=== PATIENT | male | born 1960 | race Caucasian/White ===

== ENCOUNTER 2017-02-16 13:54 | Inpatient (IN) | payer OTHER ==
[2017-02-16] MEDS ORDERED: PROVENTIL IH ONE ×3 (14:47→15:14)
[2017-02-16] MEDS ORDERED: ATROVENT IH ONE ×3 (14:47→15:14)
[2017-02-16] MEDS ORDERED: MAGNESIUM SULFATE 2GM/50ML 2 GM/50 ML BAG IV ONE ×2 (14:53→15:00)
--- NOTE | 2017-02-16 15:28 | XRay Report ---
FINAL REPORT PROCEDURE: XR CHEST ROUTINE 2V TECHNIQUE: PA and lateral chest radiographs were obtained. CPT 95225 HISTORY: Shortness of breath COMPARISON: No prior studies are available for comparison. FINDINGS: Heart: Normal. Mediastinum/Vessels: Normal. Lungs/Pleural space: Lungs are hyperinflated consistent with underlying COPD, otherwise appear clear.. Bony thorax: No acute osseous abnormality. Other: IMPRESSION: COPD. No acute abnormality is identified..
[2017-02-16 15:32] LABS: Basophils % (Auto) 0.4 % (0.0-1.8); Eosinophils % (Auto) 3.6 % (0.0-4.3); Hematocrit 52.9 % (35.5-45.6); Mean Corpuscular HGB Conc 34 % (32-34); Mean Corpuscular Hemoglobin 28 pg (28-32); Mean Corpuscular Volume 82 fl (84-94); Platelet Count 337 K/mm3 (140-440); Red Blood Count 6.47 M/mm3 (3.65-5.03); Red Cell Distribution Width 13.1 % (13.2-15.2); White Blood Count 16.9 K/mm3 (4.5-11.0)
[2017-02-16 15:47] LABS: Anion Gap 24 mmol/L; BUN/Creatinine Ratio 16.66; Blood Urea Nitrogen 15 mg/dL (9-20); Calcium 9.4 mg/dL (8.4-10.2); Carbon Dioxide 21 mmol/L (22-30); Chloride 94.2 mmol/L (98-107); Glucose 307 mg/dL (75-100); Potassium 4.1 mmol/L (3.6-5.0); Sodium 135 mmol/L (137-145)
[2017-02-16] MEDS ORDERED: NACL 0.9% 1000 ML 1,000 ML IV ONE (15:56)
[2017-02-16] MEDS ORDERED: NACL 0.9% 1000 ML 500 ML IV ONE (15:56)
--- NOTE | 2017-02-16 15:56 | Emergency Department Report ---
ED General Adult HPI - General Chief complaint: Dyspnea/Respdistress Stated complaint: TROUBLE BREATHING Time Seen by Provider: 02/16/17 14:32 Source: patient Mode of arrival: Ambulatory Limitations: No Limitations - History of Present Illness Initial comments: Patient states that his asthma has been exacerbated for the last few days. He was unable to sleep last night due to difficulty in breathing. He sees multiple home nebs prior to arriving. He started himself back on prednisone 10 mg a day over the past few days. He's had some cough but no productive sputum. He does not complain of chest pain fever or chills. The patient has no prior intubations but previous admissions for asthma he states. -: Gradual, days(s) Consistency: constant Improves with: none Worsens with: none Associated Symptoms: shortness of breath - Related Data Home Medications Medication Instructions Recorded Confirmed Last Taken ALBUTEROL Inhaler [ProAir HFA 1 puff INHALATION BID 11/01/13 06/19/16 1 Day Ago Inhaler] ALBUTEROL NEB's [Proventil 0.083% 2.5 mg INHALATION QID PRN 11/01/13 06/19/16 1 Day Ago NEBS] Previous Rx's Medication Instructions Recorded Last Taken Type predniSONE [Deltasone] 2 tab PO BID #8 tab 11/01/13 Unknown Rx ALBUTEROL NEB's [Proventil 0.083% 2.5 mg IH Q4H PRN #25 neb 08/16/14 1 Day Ago Rx NEBS] Ipratropium [Atrovent NEB] 0.5 mg IH Q6H PRN #25 neb 08/16/14 1 Day Ago Rx predniSONE [Deltasone] 20 mg PO TID #15 tab 08/16/14 Unknown Rx Prednisone [Prednisone 10 mg 10 mg PO .TAPER #1 tab.ds.pk 02/06/15 1 Day Ago Rx (6-Day Pack, 21 Tabs)] Acyclovir [Zovirax Tab] 400 mg PO 5XD 7 Days 06/19/16 Unknown Rx Carboxymethylcellulose Sodium 1 - 2 drop OD TID PRN #1 bottle 06/19/16 Unknown Rx [Lubricant Eye Drops 1%] metFORMIN [Glucophage] 500 mg PO BID #30 tablet 06/19/16 Unknown Rx predniSONE [Deltasone] 40 mg PO BID 7 Days 06/19/16 Unknown Rx Allergies Allergy/AdvReac Type Severity Reaction Status Date / Time No Known Allergies Allergy Verified 08/16/14 04:13 ED Review of Systems ROS: Stated complaint: TROUBLE BREATHING Other details as noted in HPI Constitutional: denies: chills, fever Eyes: denies: eye pain, eye discharge, vision change ENT: denies: ear pain, throat pain Respiratory: cough, shortness of breath, wheezing Cardiovascular: denies: chest pain, palpitations Endocrine: no symptoms reported Gastrointestinal: denies: abdominal pain, nausea, diarrhea Genitourinary: denies: urgency, dysuria Musculoskeletal: denies: back pain, joint swelling, arthralgia Skin: denies: rash, lesions Neurological: denies: headache, weakness, paresthesias Psychiatric: denies: anxiety, depression Hematological/Lymphatic: denies: easy bleeding, easy bruising ED Past Medical Hx - Past Medical History Hx Hypertension: No Hx CVA: No Hx Heart Attack/AMI: No Hx Congestive Heart Failure: No Hx Diabetes: No Hx Deep Vein Thrombosis: No Hx Pulmonary Embolism: No Hx GERD: No Hx Liver Disease: No Hx Renal Disease: No Hx Sickle Cell Disease: No Hx Arthritis: No Hx Headaches / Migraines: No Hx Seizures: No Hx Kidney Stones: No Hx Psychiatric Treatment: No Hx Asthma: Yes Hx COPD: No Hx Tuberculosis: No Hx Dementia: No Hx HIV: No - Surgical History Hx Coronary Stent: No Hx Open Heart Surgery: No Hx Pacemaker: No Hx Internal Defibrillator: No Hx Cholecystectomy: No Hx Appendectomy: No Hx Breast Surgery: No - Social History Smoking Status: Never Smoker Substance Use Type: None - Medications Home Medications: Home Medications Medication Instructions Recorded Confirmed Last Taken Type ALBUTEROL Inhaler [ProAir HFA 1 puff INHALATION BID 11/01/13 06/19/16 1 Day Ago History Inhaler] ALBUTEROL NEB's [Proventil 0.083% 2.5 mg INHALATION QID PRN 11/01/13 06/19/16 1 Day Ago History NEBS] predniSONE [Deltasone] 2 tab PO BID #8 tab 11/01/13 06/19/16 Unknown Rx ALBUTEROL NEB's [Proventil 0.083% 2.5 mg IH Q4H PRN #25 neb 12/01/14 10/04/16 1 Day Ago Rx NEBS] Ipratropium [Atrovent NEB] 0.5 mg IH Q6H PRN #25 neb 08/16/14 06/19/16 1 Day Ago Rx predniSONE [Deltasone] 20 mg PO TID #15 tab 08/16/14 06/19/16 Unknown Rx Prednisone [Prednisone 10 mg 10 mg PO .TAPER #1 tab.ds.pk 02/06/15 06/19/16 1 Day Ago Rx (6-Day Pack, 21 Tabs)] Acyclovir [Zovirax Tab] 400 mg PO 5XD 7 Days 06/19/16 Unknown Rx Carboxymethylcellulose Sodium 1 - 2 drop OD TID PRN #1 bottle 06/19/16 Unknown Rx [Lubricant Eye Drops 1%] metFORMIN [Glucophage] 500 mg PO BID #30 tablet 06/19/16 Unknown Rx predniSONE [Deltasone] 40 mg PO BID 7 Days 06/19/16 Unknown Rx ED Physical Exam - General Limitations: No Limitations General appearance: alert, in no apparent distress - Head Head exam: Present: atraumatic, normocephalic - Eye Eye exam: Present: normal appearance, PERRL, EOMI. Absent: scleral icterus - ENT ENT exam: Present: mucous membranes moist - Neck Neck exam: Present: normal inspection. Absent: tenderness, meningismus - Respiratory Respiratory exam: Present: wheezes, other (bilateral mild increased work of breathing). Absent: respiratory distress - Cardiovascular Cardiovascular Exam: Present: normal rhythm, tachycardia. Absent: systolic murmur, diastolic murmur, rubs, gallop - GI/Abdominal GI/Abdominal exam: Present: soft, normal bowel sounds. Absent: distended, tenderness, guarding, rebound, rigid - Rectal Rectal exam: Present: deferred - Extremities Exam Extremities exam: Present: normal inspection, normal capillary refill, pedal edema. Absent: tenderness, calf tenderness - Back Exam Back exam: Present: normal inspection - Neurological Exam Neurological exam: Present: alert, oriented X3, CN II-XII intact. Absent: motor sensory deficit - Psychiatric Psychiatric exam: Present: normal affect, normal mood - Skin Skin exam: Present: warm, dry, intact, normal color. Absent: rash ED Course Vital Signs 02/16/17 02/16/17 02/16/17 14:02 14:47 14:49 Temperature 98.8 F Pulse Rate 125 H Pulse Rate [ 115 H Bilateral Throughout] Respiratory 22 16 Rate Respiratory 24 Rate [Bilateral Throughout] Blood Pressure 155/92 O2 Sat by Pulse 91 90 Oximetry 02/16/17 02/16/17 15:17 15:18 Temperature Pulse Rate Pulse Rate [ 120 H 120 H Bilateral Throughout] Respiratory Rate Respiratory 22 20 Rate [Bilateral Throughout] Blood Pressure O2 Sat by Pulse Oximetry - Reevaluation(s) Reevaluation #1: Patient has 1+ bilateral residual wheezing. His work of breathing has certainly improved and he feels better. However, admission is warranted for moderate persistent exacerbation of asthma/status asthmaticus. In addition the patient was found to have an elevated anion gap and hyperglycemia. He will be given fluids and a small dose of insulin. Dr. Coleman is aware of these findings. I've also ordered 1 dose of Levaquin in view of the patient's leukocytosis and general exacerbation of asthma. The patient will be admitted to telemetry. 02/16/17 16:16 ED Medical Decision Making - Lab Data Result diagrams: 02/16/17 15:17 02/16/17 15:17 Laboratory Results - last 24 hr 02/16/17 02/16/17 15:17 15:17 WBC 16.9 H RBC 6.47 H Hgb 18.0 H Hct 52.9 H MCV 82 L MCH 28 MCHC 34 RDW 13.1 L Plt Count 337 Lymph % (Auto) 16.7 [place] % (Auto) 7.7 H Eos % (Auto) 3.6 Baso % (Auto) 0.4 Lymph # 2.8 [place] # 1.3 H Eos # 0.6 H Baso # 0.1 Seg Neutrophils % 71.6 H Seg Neutrophils # 12.1 H Sodium 135 L Potassium 4.1 Chloride 94.2 L Carbon Dioxide 21 L Anion Gap 24 BUN 15 Creatinine 0.9 Estimated GFR > 60 BUN/Creatinine Ratio 16.66 Glucose 307 H Calcium 9.4 Troponin T < 0.010 - Radiology Data Radiology results: report reviewed interpreted by me: Chest x-ray shows no acute process Critical care attestation.: If time is entered above; I have spent that time in minutes in the direct care of this critically ill patient, excluding procedure time. ED Disposition Clinical Impression: Increased anion gap metabolic acidosis Status asthmaticus Qualifiers: Asthma severity: moderate persistent Qualified Code(s): J45.42 - Moderate persistent asthma with status asthmaticus Hyperglycemia due to type 2 diabetes mellitus Qualifiers: Diabetes mellitus jail insulin use: without jail use Qualified Code(s ): E11.65 - Type 2 diabetes mellitus with hyperglycemia Disposition: OP ADMITTED IP TO THIS HOSP Is pt being admited?: Yes Does the pt Need Aspirin: Yes Condition: Stable Instructions: Diabetes Mellitus Type 2 in Adults (ED) Referrals: PRIMARY CARE, [Primary Care Provider] - 3-5 Days Time of Disposition: 16:20
[2017-02-16] MEDS ORDERED: LEVAQUIN 750MG/150ML 750 MG/150 ML BAG IV ONE (16:13)
[2017-02-16] MEDS ORDERED: BABY ASPIRIN PO ONE (16:21)
--- NOTE | 2017-02-16 17:43 | Event Note ---
Date: 02/16/17 See H/p in reports
[2017-02-16] MEDS ORDERED: MILK OF MAGNESIA PO PRN (17:45)
[2017-02-16] MEDS ORDERED: PERCOCET 5/325 PO PRN (17:45)
[2017-02-16] MEDS ORDERED: TYLENOL PO PRN (17:45)
[2017-02-16] MEDS ORDERED: ZOFRAN IV PRN (17:45)
[2017-02-16] MEDS ORDERED: DULCOLAX PR PRN (17:45)
[2017-02-16] MEDS ORDERED: DUONEB 0.5 MG-3 MG/3 ML SOLN IH PRN (17:46)
[2017-02-16] MEDS ORDERED: PROVENTIL IH PRN (17:57)
[2017-02-16] MEDS ORDERED: PROAIR IH SCH (18:00)
[2017-02-16] MEDS: AMARYL PO SCH (19:14)
[2017-02-16] MEDS: DUONEB 0.5 MG-3 MG/3 ML SOLN IH SCH (21:33)
[2017-02-16] MEDS: PEPCID IV SCH (22:59)
[2017-02-16] MEDS: NOVOLOG SUB-Q SCH (23:00)
[2017-02-17] MEDS: DUONEB 0.5 MG-3 MG/3 ML SOLN IH SCH ×4 (02:39→21:08)
--- NOTE | 2017-02-17 02:39 | History and Physical Report ---
CHIEF COMPLAINT: Increasing wheezing for the last 3-4 days, more so for the last one day. HISTORY OF PRESENT ILLNESS: A 56-year-old male with a history of hyperglycemia and asthma, comes in for increasing wheezing for the last 3-4 days, more so for the last one day. Cough productive of mucoid sputum. The patient started on Zofran 10 mg. No relief. No fever, no chills. Increasing wheezing. PAST MEDICAL HISTORY: Significant for hypertension and diabetes. PAST SURGICAL HISTORY: None. SOCIAL HISTORY: Does not smoke. No alcohol, no recreational drugs. FAMILY HISTORY: Significant for hypertension. CURRENT MEDICATIONS: 1. Albuterol and prednisone 2. Metformin 500 mg twice a day. REVIEW OF SYSTEMS: Significant for increasing wheezing and shortness of breath and cough, which is nonproductive to mucoid for sputum. Otherwise, review of systems is essentially negative. A 14-point review of system was done. PHYSICAL EXAMINATION: GENERAL: Elderly male, cooperative during examination, mild to moderate respiratory distress. VITAL SIGNS: Temperature 98.8, pulse is 125, respirations 22, blood pressure 155/92, O2 sats are 91%. HEENT: Unremarkable. Pupils equal and reactive. NECK: Supple, no lymphadenopathy, no thyromegaly. Accessory muscles of respiration are prominent. LUNGS: Clear to auscultation and percussion. Good air entry. CARDIOVASCULAR: S1, S2 heard. No gallop, no murmur, no rub. Apical impulse in left fifth intercostal space and midclavicular line. ABDOMEN: Soft and benign. No hepatosplenomegaly. No guarding, no rigidity. Hernial orifices are normal. EXTREMITIES: Good pedal pulses. No pedal edema. LUNGS: Bilateral inspiratory and expiratory rhonchi present. LABORATORY DATA: White count is 15.9, H and H is 18.0 and 52.9, platelet count 337,000. Sodium is 135. Potassium is 4.1, chloride of 94.2, bicarbonate is 21, BUN and creatinine is 15 and 0.9, glucose is 307. Chest x-ray no infiltrates. ASSESSMENT AND PLAN: 1. Asthma exacerbation. The patient is started on DuoNebs q.6 round the clock and q.3 p.r.n., and IV Solu-Medrol and IV Levaquin 750 mg every 24 hours. 2. Insulin-dependent diabetes. The patient was started on insulin drip for coverage. Also started on Levophed 20 mg p.o. daily and metformin 500 b.i.d. The patient may be discharged on oral hypoglycemics depending on his glucose levels but the glucose levels may be temporarily high also secondary to the Solu-Medrol. 3. Deep venous thrombosis prophylaxis, Lovenox 40 mg subcutaneous daily. JOB# [id number] ANTWAN/NTS
[2017-02-17 05:26] LABS: Alanine Aminotransferase 22 units/L (7-56); Albumin 3.9 g/dL (3.9-5); Albumin/Globulin Ratio 1.4 %; Alkaline Phosphatase 99 units/L (35-129); Anion Gap 18 mmol/L; BUN/Creatinine Ratio 22.85; Blood Urea Nitrogen 16 mg/dL (9-20); Calcium 8.8 mg/dL (8.4-10.2); Carbon Dioxide 22 mmol/L (22-30); Chloride 101.3 mmol/L (98-107); Glucose 314 mg/dL (75-100); Potassium 4.4 mmol/L (3.6-5.0); Sodium 137 mmol/L (137-145); Total Protein 6.6 g/dL (6.3-8.2)
[2017-02-17 05:30] LABS: Hemoglobin 15.6 gm/dl (11.8-15.2); Mean Corpuscular HGB Conc 35 % (32-34); Mean Corpuscular Hemoglobin 28 pg (28-32); Mean Corpuscular Volume 82 fl (84-94); Platelet Count 266 K/mm3 (140-440); Red Blood Count 5.52 M/mm3 (3.65-5.03); Red Cell Distribution Width 13.5 % (13.2-15.2); White Blood Count 8.9 K/mm3 (4.5-11.0)
[2017-02-17] MEDS: NACL 0.9% 1000 ML 1,000 ML IV SCH ×2 (06:34→22:00)
[2017-02-17 06:36] LABS: Basophils % (Manual) 0 % (0.0-1.8); Blastocytes % (Manual) 0 %; Eosinophils % (Manual) 0 % (0.0-4.3)
[2017-02-17 06:37] LABS: Diff Status Complete; RBC Morphology Normal
[2017-02-17] MEDS: NOVOLOG SUB-Q SCH ×4 (08:46→22:01)
--- NOTE | 2017-02-17 09:05 | Progress Note ---
Assessment and Plan Assessment and plan: --Acute and chronic respiratory failure Secondary to acute exacerbation of bronchial asthma Oxygen titrate O2 sats to more than 90%, nebulizers, inhalation steroids, IV antibiotics and supportive care --Uncontrolled diabetes mellitus2 Second dictation on complaints, Accu-Chek sliding scale coverage and ADA diet Start oral hypoglycemics HbA1c 11.2, patient received diabetic education and nutrition consult Possible home health nurse disease monitoring at the time of discharge --Obesity; counseling done advised dietary modification and exercise as tolerated and weight reduction when medically stable Patient verbalized understanding --DVT prophylaxis with Lovenox --Medical noncompliance; patient strongly encouraged to comply with medications and diet and follow-up visits The patient verbalized understanding Disposition; closely monitor blood sugars and blood pressures, if reasonable control Patient can be discharged home with home health Plan of care discussed with the patient his nurse as well as a case management History Interval history: Patient seen and evaluated medical review,No new events reported by the nursing staff Admitted with acute exacerbation of bronchial asthma is uncontrolled diabetes mellitus Patient reports slight improvement in shortness of breath Ritchie sugars are reasonably controlled Alert oriented 3 not in acute distress vital signs reviewed Hospitalist Physical - Constitutional Vitals: Temp Pulse Resp BP Pulse Ox 97.9 F 75 20 142/72 91 02/17/17 08:00 02/17/17 08:00 02/17/17 08:00 02/17/17 08:00 02/17/17 08:00 General appearance: Present: no acute distress, well-nourished - EENT Eyes: Present: PERRL, EOM intact - Neck Neck: Present: supple, normal ROM - Respiratory Respiratory effort: normal, labored Respiratory: bilateral: diminished, rhonchi, negative: rales, wheezing - Cardiovascular Rhythm: regular Heart Sounds: Present: S1 & S2 - Extremities Extremities: no ischemia, pulses intact, pulses symmetrical Peripheral Pulses: within normal limits - Abdominal General gastrointestinal: soft, non-tender, non-distended, normal bowel sounds - Integumentary Integumentary: Present: clear, warm - Psychiatric Psychiatric: appropriate mood/affect, cooperative - Neurologic Neurologic: CNII-XII intact, moves all extremities Results - Labs CBC & Chem 7: 02/17/17 04:19 02/17/17 04:19 Labs: Laboratory Last Values WBC 8.9 K/mm3 (4.5-11.0) 02/17/17 04:19 RBC 5.52 M/mm3 (3.65-5.03) H 02/17/17 04:19 Hgb 15.6 gm/dl (11.8-15.2) H 02/17/17 04:19 Hct 45.0 % (35.5-45.6) D 02/17/17 04:19 MCV 82 fl (84-94) L 02/17/17 04:19 MCH 28 pg (28-32) 02/17/17 04:19 MCHC 35 % (32-34) H 02/17/17 04:19 RDW 13.5 % (13.2-15.2) 02/17/17 04:19 Plt Count 266 K/mm3 (140-440) 02/17/17 04:19 Lymph % (Auto) 16.7 % (13.4-35.0) 02/16/17 15:17 [place] % (Auto) 7.7 % (0.0-7.3) H 02/16/17 15:17 Eos % (Auto) 3.6 % (0.0-4.3) 02/16/17 15:17 Baso % (Auto) 0.4 % (0.0-1.8) 02/16/17 15:17 Lymph # 2.8 K/mm3 (1.2-5.4) 02/16/17 15:17 [place] # 1.3 K/mm3 (0.0-0.8) H 02/16/17 15:17 Eos # 0.6 K/mm3 (0.0-0.4) H 02/16/17 15:17 Baso # 0.1 K/mm3 (0.0-0.1) 02/16/17 15:17 Add Manual Diff Complete 02/17/17 04:19 Total Counted 100 02/17/17 04:19 Seg Neutrophils % Dehydrator Tender 02/17/17 04:19 Seg Neuts % (Manual) 95.0 % (40.0-70.0) H 02/17/17 04:19 Band Neutrophils % 0 % 02/17/17 04:19 Lymphocytes % (Manual) 4.0 % (13.4-35.0) L 02/17/17 04:19 Reactive Lymphs % (Man) 1.0 % 02/17/17 04:19 Monocytes % (Manual) 0 % (0.0-7.3) 02/17/17 04:19 Eosinophils % (Manual) 0 % (0.0-4.3) 02/17/17 04:19 Basophils % (Manual) 0 % (0.0-1.8) 02/17/17 04:19 Metamyelocytes % 0 % 02/17/17 04:19 Myelocytes % 0 % 02/17/17 04:19 Promyelocytes % 0 % 02/17/17 04:19 Blast Cells % 0 % 02/17/17 04:19 Nucleated RBC % Not Reportable 02/17/17 04:19 Seg Neutrophils # 12.1 K/mm3 (1.8-7.7) H 02/16/17 15:17 Seg Neutrophils # Man 8.5 K/mm3 (1.8-7.7) H 02/17/17 04:19 Band Neutrophils # 0.0 K/mm3 02/17/17 04:19 Lymphocytes # (Manual) 0.4 K/mm3 (1.2-5.4) L 02/17/17 04:19 Abs React Lymphs (Man) 0.1 K/mm3 02/17/17 04:19 Monocytes # (Manual) 0.0 K/mm3 (0.0-0.8) 02/17/17 04:19 Eosinophils # (Manual) 0.0 K/mm3 (0.0-0.4) 02/17/17 04:19 Basophils # (Manual) 0.0 K/mm3 (0.0-0.1) 02/17/17 04:19 Metamyelocytes # 0.0 K/mm3 02/17/17 04:19 Myelocytes # 0.0 K/mm3 02/17/17 04:19 Promyelocytes # 0.0 K/mm3 02/17/17 04:19 Blast Cells # 0.0 K/mm3 02/17/17 04:19 WBC Morphology Not Reportable 02/17/17 04:19 Hypersegmented Neuts Not Reportable 02/17/17 04:19 Hyposegmented Neuts Not Reportable 02/17/17 04:19 Hypogranular Neuts Not Reportable 02/17/17 04:19 Smudge Cells Not Reportable 02/17/17 04:19 Toxic Granulation Not Reportable 02/17/17 04:19 Toxic Vacuolation Not Reportable 02/17/17 04:19 Dohle Bodies Not Reportable 02/17/17 04:19 Pelger-Huet Anomaly Not Reportable 02/17/17 04:19 Alejandro Rods Not Reportable 02/17/17 04:19 Platelet Estimate Appears normal 02/17/17 04:19 Clumped Platelets Not Reportable 02/17/17 04:19 Plt Clumps, EDTA Not Reportable 02/17/17 04:19 Large Platelets Not Reportable 02/17/17 04:19 Giant Platelets Not Reportable 02/17/17 04:19 Platelet Satelliting Not Reportable 02/17/17 04:19 Plt Morphology Comment Not Reportable 02/17/17 04:19 RBC Morphology Normal 02/17/17 04:19 Dimorphic RBCs Not Reportable 02/17/17 04:19 Polychromasia Not Reportable 02/17/17 04:19 Hypochromasia Not Reportable 02/17/17 04:19 Poikilocytosis Not Reportable 02/17/17 04:19 Anisocytosis Not Reportable 02/17/17 04:19 Microcytosis Not Reportable 02/17/17 04:19 Macrocytosis Not Reportable 02/17/17 04:19 Spherocytes Not Reportable 02/17/17 04:19 Pappenheimer Bodies Not Reportable 02/17/17 04:19 Sickle Cells Not Reportable 02/17/17 04:19 Target Cells Not Reportable 02/17/17 04:19 Tear Drop Cells Not Reportable 02/17/17 04:19 Ovalocytes Not Reportable 02/17/17 04:19 Helmet Cells Not Reportable 02/17/17 04:19 [place] Bodies Not Reportable 02/17/17 04:19 [place] Rings Not Reportable 02/17/17 04:19 Migel Cells Not Reportable 02/17/17 04:19 Bite Cells Not Reportable 02/17/17 04:19 Crenated Cell Not Reportable 02/17/17 04:19 Elliptocytes Not Reportable 02/17/17 04:19 Acanthocytes (Spur) Not Reportable 02/17/17 04:19 Rouleaux Not Reportable 02/17/17 04:19 Hemoglobin C Crystals Not Reportable 02/17/17 04:19 Schistocytes Not Reportable 02/17/17 04:19 Malaria parasites Not Reportable 02/17/17 04:19 [place]ion Bodies Not Reportable 02/17/17 04:19 Hem Pathologist Commnt No 02/17/17 04:19 Sodium 137 mmol/L (137-145) 02/17/17 04:19 Potassium 4.4 mmol/L (3.6-5.0) 02/17/17 04:19 Chloride 101.3 mmol/L (98-107) 02/17/17 04:19 Carbon Dioxide 22 mmol/L (22-30) 02/17/17 04:19 Anion Gap 18 mmol/L 02/17/17 04:19 BUN 16 mg/dL (9-20) 02/17/17 04:19 Creatinine 0.7 mg/dL (0.8-1.5) L 02/17/17 04:19 Estimated GFR > 60 ml/min 02/17/17 04:19 BUN/Creatinine Ratio 22.85 % 02/17/17 04:19 Glucose 314 mg/dL (75-100) H 02/17/17 04:19 POC Glucose 306 (70-105) H 02/16/17 21:49 Hemoglobin A1c 11.2 % (4-6) H 02/17/17 04:19 Calcium 8.8 mg/dL (8.4-10.2) 02/17/17 04:19 Total Bilirubin 0.60 mg/dL (0.1-1.2) 02/17/17 04:19 AST 13 units/L (5-40) 02/17/17 04:19 ALT 22 units/L (7-56) 02/17/17 04:19 Alkaline Phosphatase 99 units/L (35-129) 02/17/17 04:19 Troponin T < 0.010 ng/mL (0.00-0.029) 02/16/17 15:17 Total Protein 6.6 g/dL (6.3-8.2) 02/17/17 04:19 Albumin 3.9 g/dL (3.9-5) 02/17/17 04:19 Albumin/Globulin Ratio 1.4 % 02/17/17 04:19
[2017-02-17] MEDS: GLUCOPHAGE PO SCH ×2 (10:38→18:52)
[2017-02-17] MEDS: AMARYL PO SCH (10:40)
[2017-02-17] MEDS: PEPCID IV SCH ×2 (11:39→22:01)
[2017-02-17] MEDS ORDERED: FLUARIX QUAD 2016-2017(36 MOS+) IM ONE (12:00)
[2017-02-17] MEDS ORDERED: LEVAQUIN 750MG/150ML 750 MG/150 ML BAG IV SCH (16:00)
[2017-02-17] MEDS ORDERED: LOVENOX SUB-Q SCH (22:00)
[2017-02-18] MEDS: DUONEB 0.5 MG-3 MG/3 ML SOLN IH SCH ×3 (01:47→13:33)
[2017-02-18] MEDS ORDERED: LEVAQUIN PO SCH (10:00)
[2017-02-18] MEDS: NOVOLOG SUB-Q SCH (10:22)
[2017-02-18] MEDS: AMARYL PO SCH (10:24)
[2017-02-18] MEDS: GLUCOPHAGE PO SCH (10:24)
--- NOTE | 2017-02-18 12:12 | Discharge Summary ---
Providers - Providers Date of Admission: 02/16/17 16:09 Date of discharge: 02/18/17 Attending physician: HELENE MARQUEZ Primary care physician: ASSOCIATE EDITOR Hospitalization Condition: Stable Disposition: DISCHARGED TO HOME OR SELFCARE Core Measure Documentation - Palliative Care Palliative Care/ Comfort Measures: Not Applicable - Core Measures Any of the following diagnoses?: none Exam - Constitutional Vitals: Temp Pulse Resp BP Pulse Ox 98.4 F 85 18 123/68 93 02/18/17 08:00 02/18/17 08:00 02/18/17 08:00 02/18/17 08:00 02/18/17 08:00 General appearance: Present: no acute distress, well-nourished, obese - EENT Eyes: Present: PERRL, EOM intact - Neck Neck: Present: supple, normal ROM - Respiratory Respiratory effort: normal Respiratory: negative: rales, rhonchi, wheezing - Cardiovascular Rhythm: regular Heart Sounds: Present: S1 & S2 - Extremities Extremities: no ischemia, pulses intact, pulses symmetrical Peripheral Pulses: within normal limits - Abdominal General gastrointestinal: Present: soft, non-tender, non-distended, normal bowel sounds - Integumentary Integumentary: Present: clear, warm - Musculoskeletal Musculoskeletal: strength equal bilaterally - Psychiatric Psychiatric: appropriate mood/affect, cooperative - Neurologic Neurologic: CNII-XII intact, moves all extremities Plan Activity: no restrictions Diet: low salt, diabetic Additional Instructions: Avoid smoke and dust/use mask if needed. Exercise as tolerated and weight reduction. Walk 15-20 minutes every day as tolerated Follow up with: PRIMARY CARE, [Primary Care Provider] - 3-5 Days Prescriptions: Azithromycin [Zithromax Z-CHAU] 0 mg PO DAILY #1 tab Glimepiride [Amaryl] 2 mg PO QDDIAB #30 tablet metFORMIN [Glucophage] 500 mg PO BIDDIAB #60 tablet oxyCODONE /ACETAMINOPHEN [Percocet 5/325 mg] 1 tab PO QHS PRN #7 tablet PRN Reason: Pain, Moderate (4-6) predniSONE [Deltasone] 10 mg PO QDAY #10 tab
[2017-02-18 13:13] VITALS: BP 150/70
--- NOTE | 2017-02-19 09:35 | Admit Criteria Form ---
Admission Criteria Documentation: ASTHMA Clinical Indications for Admission to Inpatient Care (Place 'X' for any and all applicable criteria): Admission is indicated for ANY ONE of the following (1)(2)(3)(4)(5): [ ]I. Absent or markedly diminished breath sounds (silent chest) [ ]II. Oxygen saturation < 92% [ ]III. PaCO2 = / > 42 mm Hg (5.6 kPa) [ ]IV. Peak expiratory flow rate < 40% of predicted or personal best after treatment. [ ]V. Peak expiratory flow rate < 33% of predicted or personal before after treatment [ ]. Change in mental status [ ]VII. Ventilatory support required [ ]VIII. PaO2 < 60 mm Hg (8.0 kPa) [ ]IX. Cyanosis [ ]X. Cardiac dysrhythmia (e.g., bradycardia) [ ]XI. Hemodynamic instability [ ]XII. Radiographic evidence of complication requiring inpatient treatment (e.g., pneumonia, pneumothorax) [X]XIII. Inpatient admission required rather than observation care (also use Asthma: Observation Care guideline as appropriate) because of ANY ONE of the following: [ ]a) Respiratory finding that is severe or persistent (eg, dyspnea, tachypnea, accessory muscle use) [ ]b) Airflow measurements less than 60% of predicted or personal best that persist (e.g., over 24 hours) or worsen despite treatments [X]c) Supplemental oxygen or respiratory treatments for over 24 hours that are performable only in acute inpatient setting [ ]d) Other condition, treatment or monitoring requiring inpatient admission. Extended stay beyond goal length of stay may be needed for (26)(27)(28): [ ]a) Severe respiratory failure (23) (29) (30) [ ]b) Secondary causes and complications (25) [ ]c) Status asthmaticus [ ]d) Chronic obstructive asthma [ ]e) Older patients (29) [ ]f) Slow resolution [ ]g) Clinically significant exacerbation of comorbidities (eg, katherine. heart failure, atrial fibrillation) The original [employer] content created by [employer] has been revised. The portions of the content which have been revised are identified through the use of italic text or in bold, and [employer] has neither reviewed nor approved the modified material. All other unmodified content is copyright [employer] Please see references footnoted in the original [facility] edition 2016 Admission Criteria Met: Yes
== END 2017-02-18 15:35 | disposition home or self-care (01) | DRG 189 ==
LOC: ED 13:54 → 4A 16:09
PROVIDERS: ADMIT Internal Medicine; ATTEND Internal Medicine
DX: J96.20 Acute and chronic respiratory failure, unspecified whether with hypoxia or hypercapnia (principal); J45.902 Unspecified asthma with status asthmaticus; I10 Essential (primary) hypertension; Z82.49 Family history of ischemic heart disease and other diseases of the circulatory system; E11.65 Type 2 diabetes mellitus with hyperglycemia; E66.9 Obesity, unspecified; Z71.89 Other specified counseling; Z68.30 Body mass index [BMI] 30.0-30.9, adult; Z91.14 Patient's other noncompliance with medication regimen
CPT/HCPCS: 36415; 71020; 80048; 80053; 82962; 83036; 84484; 85007; 85025; 90686; 93005; 93010; 94640; 94644; 94760; 96365; 96366; 96367; 96375; J1650; J1815; J1956; J2930; J3475; J7030

== ENCOUNTER 2017-05-11 12:26 | Inpatient (IN) | payer SELFPAY ==
[2017-05-11] MEDS ORDERED: DUONEB *Not for PRN Use IH ONE ×2 (13:16→15:16)
[2017-05-11] MEDS ORDERED: MAGNESIUM SULFATE 2GM/50ML 2 GM/50 ML BAG IV ONE (13:21)
--- NOTE | 2017-05-11 14:10 | Emergency Department Report ---
ED General Adult HPI - General Chief complaint: Adult Asthma Stated complaint: ASTHMA ATTACK Time Seen by Provider: 05/11/17 13:16 Source: patient Mode of arrival: Ambulatory Limitations: No Limitations - History of Present Illness Initial comments: The patient complains of exacerbation of his asthma since yesterday. He started to take prednisone on his own (3 10 mg tablets) over the past 2 days. He states he used his neb machine several times yesterday up until about 5 in the morning. He had persistent wheezing. He denied any significant cough. He denied fever or chest pain pressure or tightness. -: Gradual, days(s) Consistency: constant Improves with: none Worsens with: none Associated Symptoms: denies other symptoms Treatments Prior to Arrival: none - Related Data Home Medications Medication Instructions Recorded Confirmed Last Taken ALBUTEROL Inhaler [ProAir HFA 1 puff INHALATION BID 11/01/13 02/16/17 02/16/17 Inhaler] Previous Rx's Medication Instructions Recorded Last Taken Type ALBUTEROL NEB's [Proventil 0.083% 2.5 mg IH Q4H PRN #25 neb 08/16/14 02/16/17 Rx NEBS] Azithromycin [Zithromax Z-CHAU] 0 mg PO DAILY #1 tab 02/18/17 Unknown Rx Glimepiride [Amaryl] 2 mg PO QDDIAB #30 tablet 02/18/17 Unknown Rx metFORMIN [Glucophage] 500 mg PO BIDDIAB #60 tablet 02/18/17 Unknown Rx oxyCODONE /ACETAMINOPHEN [Percocet 1 tab PO QHS PRN #7 tablet 02/18/17 Unknown Rx 5/325 mg] predniSONE [Deltasone] 10 mg PO QDAY #10 tab 02/18/17 Unknown Rx Allergies Allergy/AdvReac Type Severity Reaction Status Date / Time No Known Allergies Allergy Verified 08/16/14 04:13 ED Review of Systems ROS: Stated complaint: ASTHMA ATTACK Other details as noted in HPI Constitutional: denies: chills, fever Eyes: denies: eye pain, eye discharge, vision change ENT: denies: ear pain, throat pain Respiratory: shortness of breath, wheezing. denies: cough (denies productive cough) Cardiovascular: denies: chest pain, palpitations Endocrine: no symptoms reported Gastrointestinal: denies: abdominal pain, nausea, diarrhea Genitourinary: denies: urgency, dysuria Musculoskeletal: denies: back pain, joint swelling, arthralgia Skin: denies: rash, lesions Neurological: denies: headache, weakness, paresthesias Psychiatric: denies: anxiety, depression Hematological/Lymphatic: denies: easy bleeding, easy bruising ED Past Medical Hx - Past Medical History Hx Hypertension: No Hx CVA: No Hx Heart Attack/AMI: No Hx Congestive Heart Failure: No Hx Diabetes: No Hx Deep Vein Thrombosis: No Hx Pulmonary Embolism: No Hx GERD: No Hx Liver Disease: No Hx Renal Disease: No Hx Sickle Cell Disease: No Hx Arthritis: No Hx Headaches / Migraines: No Hx Seizures: No Hx Kidney Stones: No Hx Psychiatric Treatment: No Hx Asthma: Yes Hx COPD: No Hx Tuberculosis: No Hx Dementia: No Hx HIV: No - Surgical History Hx Coronary Stent: No Hx Open Heart Surgery: No Hx Pacemaker: No Hx Internal Defibrillator: No Hx Cholecystectomy: No Hx Appendectomy: No Hx Breast Surgery: No - Social History Smoking Status: Never Smoker Substance Use Type: None - Medications Home Medications: Home Medications Medication Instructions Recorded Confirmed Last Taken Type ALBUTEROL Inhaler [ProAir HFA 1 puff INHALATION BID 11/01/13 02/16/17 02/16/17 History Inhaler] ALBUTEROL NEB's [Proventil 0.083% 2.5 mg IH Q4H PRN #25 neb 08/16/14 02/16/17 Rx NEBS] Azithromycin [Zithromax Z-CHAU] 0 mg PO DAILY #1 tab 02/18/17 Unknown Rx Glimepiride [Amaryl] 2 mg PO QDDIAB #30 tablet 02/18/17 Unknown Rx metFORMIN [Glucophage] 500 mg PO BIDDIAB #60 tablet 02/18/17 Unknown Rx oxyCODONE /ACETAMINOPHEN [Percocet 1 tab PO QHS PRN #7 tablet 02/18/17 Unknown Rx 5/325 mg] predniSONE [Deltasone] 10 mg PO QDAY #10 tab 02/18/17 Unknown Rx ED Physical Exam - General Limitations: No Limitations General appearance: alert, in no apparent distress - Head Head exam: Present: atraumatic, normocephalic - Eye Eye exam: Present: normal appearance - ENT ENT exam: Present: mucous membranes moist - Neck Neck exam: Present: normal inspection - Respiratory Respiratory exam: Present: wheezes, decreased breath sounds. Absent: respiratory distress - Cardiovascular Cardiovascular Exam: Present: regular rate, normal rhythm. Absent: systolic murmur, diastolic murmur, rubs, gallop - GI/Abdominal GI/Abdominal exam: Present: soft, normal bowel sounds. Absent: distended, tenderness, guarding, rebound, rigid - Rectal Rectal exam: Present: deferred - Extremities Exam Extremities exam: Present: normal inspection - Back Exam Back exam: Present: normal inspection - Neurological Exam Neurological exam: Present: alert, oriented X3, CN II-XII intact. Absent: motor sensory deficit - Psychiatric Psychiatric exam: Present: normal affect, normal mood - Skin Skin exam: Present: warm, dry, intact, normal color. Absent: rash ED Course Vital Signs 05/11/17 05/11/17 05/11/17 12:43 12:50 13:06 Temperature 99.3 F Pulse Rate 113 H 110 H Respiratory 32 H 98 H 19 Rate Blood Pressure 143/66 O2 Sat by Pulse 92 99 92 Oximetry 05/11/17 05/11/17 05/11/17 13:15 13:31 13:45 Temperature Pulse Rate 110 H 104 H 112 H Respiratory 19 15 18 Rate Blood Pressure O2 Sat by Pulse 89 99 93 Oximetry 05/11/17 05/11/17 05/11/17 14:01 14:15 14:31 Temperature Pulse Rate 111 H 107 H 103 H Respiratory 16 17 15 Rate Blood Pressure O2 Sat by Pulse 90 89 94 Oximetry 05/11/17 05/11/17 05/11/17 14:45 15:00 15:15 Temperature Pulse Rate 105 H 104 H 100 H Respiratory 17 17 16 Rate Blood Pressure 118/75 131/80 131/80 O2 Sat by Pulse 92 91 93 Oximetry 05/11/17 15:30 Temperature Pulse Rate 97 H Respiratory 11 L Rate Blood Pressure 117/72 O2 Sat by Pulse 93 Oximetry - Reevaluation(s) Reevaluation #1: Patient with persistent wheezing. His oxygenation is 93 on 2 L. He will be admitted for further care and evaluation by Dr. Coleman. His work of breathing is fine. There is no signs of hypercapnia. 05/11/17 18:36 ED Medical Decision Making - Lab Data Result diagrams: 05/11/17 17:23 08/26/17 17:23 Laboratory Results - last 24 hr 05/11/17 05/11/17 17:23 17:23 WBC 13.0 H RBC 5.72 H Hgb 16.3 H Hct 47.6 H MCV 83 L MCH 29 MCHC 34 RDW 13.1 L Plt Count 261 Seg Neutrophils % Yeast Tender Sodium 137 Potassium 4.3 Chloride 99.8 Carbon Dioxide 18 L Anion Gap 24 BUN 20 Creatinine 0.8 Estimated GFR > 60 BUN/Creatinine Ratio 25.00 Glucose 260 H Calcium 8.7 - EKG Data -: EKG Interpreted by Me EKG shows normal: sinus rhythm, axis (left axis) Rate: tachycardia - EKG Data Interpretation: no acute changes - Radiology Data interpreted by me: Chest x-ray shows no acute process Critical care attestation.: If time is entered above; I have spent that time in minutes in the direct care of this critically ill patient, excluding procedure time. ED Disposition Clinical Impression: Asthma exacerbation, Hypoxia, Hyperglycemia due to type 2 diabetes mellitus Disposition: OP ADMIT IP TO THIS HOSP Is pt being admited?: Yes Does the pt Need Aspirin: Yes Condition: Stable Instructions: Diabetes Mellitus Type 2 in Adults (ED) Referrals: PRIMARY CARE, [Primary Care Provider] - 3-5 Days Time of Disposition: 18:36
--- NOTE | 2017-05-11 15:16 | XRay Report ---
FINAL REPORT PROCEDURE: XR CHEST 1V AP TECHNIQUE: Chest radiograph anteroposterior view. CPT 87213 HISTORY: JOSE COMPARISON: Prior chest x-ray 02/16/2017 FINDINGS: Heart size and pulmonary vasculature appear normal. No evidence of pulmonary edema or pleural effusion. No infiltrates or masses are seen. No evidence of pneumothorax. No acute bony abnormalities are identified. Lungs appear hyperinflated. This is unchanged. IMPRESSION: Hyperinflation suggesting underlying COPD. No acute abnormality is identified.
[2017-05-11] MEDS ORDERED: NACL 0.9% 1000 ML 1,000 ML IV ONE ×2 (16:59→18:22)
[2017-05-11 17:36] LABS: Hematocrit 47.6 % (35.5-45.6); Hemoglobin 16.3 gm/dl (11.8-15.2); Mean Corpuscular HGB Conc 34 % (32-34); Mean Corpuscular Hemoglobin 29 pg (28-32); Mean Corpuscular Volume 83 fl (84-94); Platelet Count 261 K/mm3 (140-440); Red Blood Count 5.72 M/mm3 (3.65-5.03); Red Cell Distribution Width 13.1 % (13.2-15.2)
[2017-05-11 17:51] LABS: Anion Gap 24 mmol/L; Blood Urea Nitrogen 20 mg/dL (9-20); Calcium 8.7 mg/dL (8.4-10.2); Carbon Dioxide 18 mmol/L (22-30); Chloride 99.8 mmol/L (98-107); Glucose 260 mg/dL (75-100); Potassium 4.3 mmol/L (3.6-5.0); Sodium 137 mmol/L (137-145)
[2017-05-11] MEDS ORDERED: PROVENTIL IH PRN (18:21)
[2017-05-11] MEDS ORDERED: BABY ASPIRIN PO ONE (18:37)
[2017-05-11 19:06] LABS: Basophils % (Manual) 0 % (0.0-1.8); Blastocytes % (Manual) 0 %; Eosinophils % (Manual) 0 % (0.0-4.3)
[2017-05-11 19:09] LABS: Anisocytosis 1+; Diff Status Complete; Platelet Estimate Consistent w Auto
--- NOTE | 2017-05-11 19:26 | History and Physical Report ---
History of Present Illness Date of examination: 05/11/17 Date of admission: 05/11/17 Chief complaint: CC: SOBand wheezing for 2 days. History of present illness: 56y/o male comes in for severe wheezing for 2 days.Has been using 30 mg Prednisone and Nebulizer machine frequently with no response.;Also used Zithromax. Nofever or chills.No recent travel.No exacerbating or relieving factors. Past History Past Medical History: other (Asthma) Past Surgical History: No surgical history Social history: lives with family. denies: smoking, alcohol abuse Family history: hypertension Medications and Allergies Allergies Allergy/AdvReac Type Severity Reaction Status Date / Time No Known Allergies Allergy Verified 08/16/14 04:13 Home Medications Medication Instructions Recorded Confirmed Last Taken Type ALBUTEROL Inhaler [ProAir HFA 1 puff INHALATION BID 11/01/13 02/16/17 02/16/17 History Inhaler] ALBUTEROL NEB's [Proventil 0.083% 2.5 mg IH Q4H PRN #25 neb 08/16/14 02/16/17 Rx NEBS] Azithromycin [Zithromax Z-CHAU] 0 mg PO DAILY #1 tab 02/18/17 Unknown Rx Glimepiride [Amaryl] 2 mg PO QDDIAB #30 tablet 02/18/17 Unknown Rx metFORMIN [Glucophage] 500 mg PO BIDDIAB #60 tablet 02/18/17 Unknown Rx oxyCODONE /ACETAMINOPHEN [Percocet 1 tab PO QHS PRN #7 tablet 02/18/17 Unknown Rx 5/325 mg] predniSONE [Deltasone] 10 mg PO QDAY #10 tab 02/18/17 Unknown Rx Active Meds: Active Medications Albuterol (Proventil) 5 mg IH Q2H PRN PRN Reason: Wheezing Sodium Chloride (Nacl 0.9% 1000 Ml) 1,000 mls @ 125 mls/hr IV ONCE ONE Stop: 05/12/17 00:58 Last Admin: 05/11/17 17:59 Dose: 125 mls/hr Sodium Chloride (Nacl 0.9% 1000 Ml) 1,000 mls @ 125 mls/hr IV ONCE ONE Stop: 05/12/17 02:21 Review of Systems All systems: negative Constitutional: no weight loss, no weight gain, no fever, no chills, no sweats, no night sweats Ears, nose, mouth and throat: no dysphagia, no hoarseness, no sore throat, no swelling in mouth, no swelling in throat Cardiovascular: no chest pain, no orthopnea, no palpitations, no rapid/ irregular heart beat, no edema, no syncope, no lightheadedness, no shortness of breath Respiratory: no cough with sputum, no excessive sputum, no dyspnea on exertion, no wheezing Gastrointestinal: no nausea, no vomiting, no diarrhea, no constipation, no change in bowel habits, no hematemesis, no coffee ground emesis Genitourinary Male: no hematuria, no flank pain, no discharge, no urinary frequency, no urinary hesitancy, no nocturia, no incontinence, no erectile dysfunction, no genital pain Musculoskeletal: no neck stiffness, no neck pain, no shooting arm pain, no arm numbness/tingling, no low back pain, no shooting leg pain, no leg numbness/ tingling, no redness of joints Integumentary: no rash, no pruritis, no redness, no sores, no wounds, no jaundice, no boils, no blisters Neurological: no seizures, no syncope Psychiatric: no anxiety, no memory loss, no change in sleep habits, no sleep disturbances, no insomnia, no hypersomnia, no change in appetite, no change in libido Endocrine: no cold intolerance, no heat intolerance, no polyphagia, no excessive thirst, no polydipsia, no polyuria, no nocturia, no excessive sweating , no flushing Exam - Physical Exam Narrative exam: Wheezing at rest - Constitutional Vitals: Temp Pulse Resp BP Pulse Ox 99.3 F 97 H 16 130/77 92 05/11/17 12:43 05/11/17 18:45 05/11/17 18:45 05/11/17 18:45 05/11/17 18:45 General appearance: Present: mild distress, well-nourished - EENT Eyes: Present: PERRL ENT: hearing intact, clear oral mucosa - Neck Neck: Present: supple, normal ROM - Respiratory Respiratory effort: normal Respiratory: bilateral: diminished, rhonchi - Cardiovascular Heart rate: 80 Rhythm: regular Heart Sounds: Present: S1 & S2. Absent: rub, click - Extremities Extremities: no ischemia, pulses intact, pulses symmetrical, No edema Peripheral Pulses: within normal limits - Abdominal General gastrointestinal: Present: soft, non-tender, non-distended, normal bowel sounds Male genitourinary: Present: normal - Rectal Rectal Exam: deferred - Integumentary Integumentary: Present: clear, warm, dry - Musculoskeletal Musculoskeletal: gait normal, strength equal bilaterally - Psychiatric Psychiatric: appropriate mood/affect, intact judgment & insight - Neurologic Neurologic: CNII-XII intact, moves all extremities - Allied Health Allied health notes reviewed: nursing, case management Results - Labs CBC & Chem 7: 05/12/17 05:13 05/11/17 17:23 Labs: Laboratory Last Values WBC 13.0 K/mm3 (4.5-11.0) H 05/11/17 17:23 RBC 5.72 M/mm3 (3.65-5.03) H 05/11/17 17:23 Hgb 16.3 gm/dl (11.8-15.2) H 05/11/17 17:23 Hct 47.6 % (35.5-45.6) H 05/11/17 17:23 MCV 83 fl (84-94) L 05/11/17 17:23 MCH 29 pg (28-32) 05/11/17 17:23 MCHC 34 % (32-34) 05/11/17 17:23 RDW 13.1 % (13.2-15.2) L 05/11/17 17:23 Plt Count 261 K/mm3 (140-440) 05/11/17 17:23 Add Manual Diff Complete 05/11/17 17:23 Total Counted 100 05/11/17 17:23 Seg Neutrophils % Assistant [employer] Professional 05/11/17 17:23 Seg Neuts % (Manual) 97.0 % (40.0-70.0) H 05/11/17 17:23 Band Neutrophils % 0 % 05/11/17 17:23 Lymphocytes % (Manual) 1.0 % (13.4-35.0) L 05/11/17 17:23 Reactive Lymphs % (Man) 0 % 05/11/17 17:23 Monocytes % (Manual) 2.0 % (0.0-7.3) 05/11/17 17:23 Eosinophils % (Manual) 0 % (0.0-4.3) 05/11/17 17:23 Basophils % (Manual) 0 % (0.0-1.8) 05/11/17 17:23 Metamyelocytes % 0 % 05/11/17 17:23 Myelocytes % 0 % 05/11/17 17:23 Promyelocytes % 0 % 05/11/17 17:23 Blast Cells % 0 % 05/11/17 17:23 Nucleated RBC % Not Reportable 05/11/17 17:23 Seg Neutrophils # Man 12.6 K/mm3 (1.8-7.7) H 05/11/17 17:23 Band Neutrophils # 0.0 K/mm3 05/11/17 17:23 Lymphocytes # (Manual) 0.1 K/mm3 (1.2-5.4) L 05/11/17 17:23 Abs React Lymphs (Man) 0.0 K/mm3 05/11/17 17:23 Monocytes # (Manual) 0.3 K/mm3 (0.0-0.8) 05/11/17 17:23 Eosinophils # (Manual) 0.0 K/mm3 (0.0-0.4) 05/11/17 17:23 Basophils # (Manual) 0.0 K/mm3 (0.0-0.1) 05/11/17 17:23 Metamyelocytes # 0.0 K/mm3 05/11/17 17:23 Myelocytes # 0.0 K/mm3 05/11/17 17:23 Promyelocytes # 0.0 K/mm3 05/11/17 17:23 Blast Cells # 0.0 K/mm3 05/11/17 17:23 WBC Morphology Not Reportable 05/11/17 17:23 Hypersegmented Neuts Not Reportable 05/11/17 17:23 Hyposegmented Neuts Not Reportable 05/11/17 17:23 Hypogranular Neuts Not Reportable 05/11/17 17:23 Smudge Cells Not Reportable 05/11/17 17:23 Toxic Granulation Not Reportable 05/11/17 17:23 Toxic Vacuolation Not Reportable 05/11/17 17:23 Dohle Bodies Not Reportable 05/11/17 17:23 Pelger-Huet Anomaly Not Reportable 05/11/17 17:23 Alejandro Rods Not Reportable 05/11/17 17:23 Platelet Estimate Consistent w auto 05/11/17 17:23 Clumped Platelets Not Reportable 05/11/17 17:23 Plt Clumps, EDTA Not Reportable 05/11/17 17:23 Large Platelets Not Reportable 05/11/17 17:23 Giant Platelets Not Reportable 05/11/17 17:23 Platelet Satelliting Not Reportable 05/11/17 17:23 Plt Morphology Comment Not Reportable 05/11/17 17:23 RBC Morphology Not Reportable 05/11/17 17:23 Dimorphic RBCs Not Reportable 05/11/17 17:23 Polychromasia Not Reportable 05/11/17 17:23 Hypochromasia Not Reportable 05/11/17 17:23 Poikilocytosis Not Reportable 05/11/17 17:23 Anisocytosis 1+ 05/11/17 17:23 Microcytosis Not Reportable 05/11/17 17:23 Macrocytosis Not Reportable 05/11/17 17:23 Spherocytes Not Reportable 05/11/17 17:23 Pappenheimer Bodies Not Reportable 05/11/17 17:23 Sickle Cells Not Reportable 05/11/17 17:23 Target Cells Not Reportable 05/11/17 17:23 Tear Drop Cells Not Reportable 05/11/17 17:23 Ovalocytes Not Reportable 05/11/17 17:23 Helmet Cells Not Reportable 05/11/17 17:23 [place] Bodies Not Reportable 05/11/17 17:23 [place] Rings Not Reportable 05/11/17 17:23 Migel Cells Not Reportable 05/11/17 17:23 Bite Cells Not Reportable 05/11/17 17:23 Crenated Cell Not Reportable 05/11/17 17:23 Elliptocytes Not Reportable 05/11/17 17:23 Acanthocytes (Spur) Not Reportable 05/11/17 17:23 Rouleaux Not Reportable 05/11/17 17:23 Hemoglobin C Crystals Not Reportable 05/11/17 17:23 Schistocytes Not Reportable 05/11/17 17:23 Malaria parasites Not Reportable 05/11/17 17:23 Damion Bodies Not Reportable 05/11/17 17:23 Hem Pathologist Commnt No 05/11/17 17:23 Sodium 137 mmol/L (137-145) 05/11/17 17:23 Potassium 4.3 mmol/L (3.6-5.0) 05/11/17 17:23 Chloride 99.8 mmol/L (98-107) 05/11/17 17:23 Carbon Dioxide 18 mmol/L (22-30) L 05/11/17 17:23 Anion Gap 24 mmol/L 05/11/17 17:23 BUN 20 mg/dL (9-20) 05/11/17 17:23 Creatinine 0.8 mg/dL (0.8-1.5) 05/11/17 17:23 Estimated GFR > 60 ml/min 05/11/17 17:23 BUN/Creatinine Ratio 25.00 % 05/11/17 17:23 Glucose 260 mg/dL (75-100) H 05/11/17 17:23 POC Glucose 271 (70-105) H 05/11/17 18:50 Calcium 8.7 mg/dL (8.4-10.2) 05/11/17 17:23 - Imaging and Cardiology EKG: report reviewed (98/min occ PVc's Noinspecific T wave abnormality) Chest x-ray: report reviewed ( Early Copd) Assessment and Plan Advance Directives: Yes (Full code) VTE prophylaxis?: Chemical Plan of care discussed with patient/family: Yes - Patient Problems (1) Asthma exacerbation Current Visit: Yes Status: Chronic Plan to address problem: Patient initiated on IV Solumedrol Duonebs 6h RTC and Q3 PRN .Also IV Levaquin.Patient responded to some extent in ER.Needs another 24 to 48 hours of inpatient treatment.Patient has nebulizer machine at home. (2) T2DM (type 2 diabetes mellitus) Current Visit: Yes Status: Chronic Qualifiers: Diabetes mellitus complication status: without complication Diabetes mellitus complication detail: D Diabetic retinopathy severity: D Proliferative retinopathy type: P Diabetes mellitus macular edema: D Diabetes mellitus detention insulin use: without detention use Laterality: L Chronic kidney disease stage: C Qualified Code(s): E11.9 - Type 2 diabetes mellitus without complications Plan to address problem: Cont Glimepride and Metformin.Also Insulin coverage with Moderate dose protocol. Check A1c. (3) DVT prophylaxis Current Visit: Yes Status: Acute Plan to address problem: On Lovenox 40 mg sq qd
[2017-05-11] MEDS ORDERED: ZOFRAN IV PRN (19:27)
[2017-05-11] MEDS ORDERED: DILAUDID IV PRN (19:27)
[2017-05-11] MEDS ORDERED: MILK OF MAGNESIA PO PRN (19:27)
[2017-05-11] MEDS ORDERED: DULCOLAX PR PRN (19:27)
[2017-05-11] MEDS ORDERED: TYLENOL PO PRN (19:27)
[2017-05-11] MEDS ORDERED: PERCOCET 5/325 PO PRN (19:35)
[2017-05-11] MEDS ORDERED: NACL 0.9% 1000 ML 1,000 ML IV SCH (20:00)
[2017-05-11] MEDS: DUONEB *Not for PRN Use IH SCH (20:01)
[2017-05-11] MEDS ORDERED: NOVOLOG SUB-Q ONE ×2 (20:39→23:00)
[2017-05-11] MEDS ORDERED: LEVAQUIN 750MG/150ML 750 MG/150 ML BAG IV ONE (20:54)
[2017-05-11] MEDS ORDERED: BABY ASPIRIN ONE (20:54)
[2017-05-11] MEDS ORDERED: LEVAQUIN 750MG/150ML 750 MG/150 ML BAG IV SCH (21:00)
[2017-05-11] MEDS ORDERED: PROAIR IH SCH (22:00)
[2017-05-11] MEDS: AMARYL PO SCH (23:46)
[2017-05-12] MEDS: DUONEB *Not for PRN Use IH SCH ×3 (01:44→13:30)
[2017-05-12 06:01] LABS: Hematocrit 43.4 % (35.5-45.6); Hemoglobin 14.9 gm/dl (11.8-15.2); Mean Corpuscular HGB Conc 34 % (32-34); Mean Corpuscular Hemoglobin 29 pg (28-32); Mean Corpuscular Volume 83 fl (84-94); Platelet Count 261 K/mm3 (140-440); Red Blood Count 5.24 M/mm3 (3.65-5.03); Red Cell Distribution Width 13.3 % (13.2-15.2); White Blood Count 14.4 K/mm3 (4.5-11.0)
[2017-05-12 06:27] LABS: Alanine Aminotransferase 17 units/L (7-56); Albumin 4.1 g/dL (3.9-5); Albumin/Globulin Ratio 1.7 %; Alkaline Phosphatase 81 units/L (35-129); Anion Gap 24 mmol/L; Blood Urea Nitrogen 22 mg/dL (9-20); Carbon Dioxide 18 mmol/L (22-30); Chloride 97.9 mmol/L (98-107); Glucose 263 mg/dL (75-100); Potassium 3.9 mmol/L (3.6-5.0); Sodium 136 mmol/L (137-145); Total Protein 6.5 g/dL (6.3-8.2)
[2017-05-12 07:28] LABS: Basophils % (Manual) 0 % (0.0-1.8); Blastocytes % (Manual) 0 %; Diff Status Complete; Eosinophils % (Manual) 0 % (0.0-4.3); RBC Morphology Normal
[2017-05-12] MEDS ORDERED: GLUCOPHAGE PO SCH (08:00)
[2017-05-12] MEDS: AMARYL PO SCH (08:36)
--- NOTE | 2017-05-12 09:57 | Progress Note ---
Assessment and Plan Assessment and plan: Patient is a 56y/o male with hx of asthma admitted with asthma exacerbation despite compliance with neb and also 30mg of prednisione in addition to zithromax. Acute Respiratory failure secondary to Asthma exacerbation * Continue steroids and taper * Continue abx with levaquin * Chest xray reviewed no acute pathology noted * Peakflow meter Asthma exacerbation * As noted above Uncontrolled DM * Adjust insulin. Increase in blood glucose also due to steroids * Continue Metformin and Amaryl Leukocytosis possibly due to steroids, eval for infectious process * Monitor for any fever development. DVT/GI prophy Plan of care discussed in detail with the patient. Hospitalist Physical - Constitutional Vitals: Temp Pulse Resp BP Pulse Ox 98.3 F 99 H 18 123/61 93 05/12/17 07:20 05/12/17 09:42 05/12/17 07:20 05/12/17 07:20 05/12/17 09:45 General appearance: Present: mild distress, well-nourished Results - Labs CBC & Chem 7: 05/12/17 05:13 05/12/17 05:13 Labs: Laboratory Last Values WBC 14.4 K/mm3 (4.5-11.0) H 05/12/17 05:13 RBC 5.24 M/mm3 (3.65-5.03) H 05/12/17 05:13 Hgb 14.9 gm/dl (11.8-15.2) 05/12/17 05:13 Hct 43.4 % (35.5-45.6) 05/12/17 05:13 MCV 83 fl (84-94) L 05/12/17 05:13 MCH 29 pg (28-32) 05/12/17 05:13 MCHC 34 % (32-34) 05/12/17 05:13 RDW 13.3 % (13.2-15.2) 05/12/17 05:13 Plt Count 261 K/mm3 (140-440) 05/12/17 05:13 Add Manual Diff Complete 05/12/17 05:13 Total Counted 100 05/12/17 05:13 Seg Neutrophils % Manager Life 05/12/17 05:13 Seg Neuts % (Manual) 97.0 % (40.0-70.0) H 05/11/17 17:23 Band Neutrophils % 0 % 05/12/17 05:13 Lymphocytes % (Manual) 3.0 % (13.4-35.0) L 05/12/17 05:13 Reactive Lymphs % (Man) 0 % 05/12/17 05:13 Monocytes % (Manual) 1.0 % (0.0-7.3) 05/12/17 05:13 Eosinophils % (Manual) 0 % (0.0-4.3) 05/12/17 05:13 Basophils % (Manual) 0 % (0.0-1.8) 05/12/17 05:13 Metamyelocytes % 0 % 05/12/17 05:13 Myelocytes % 0 % 05/12/17 05:13 Promyelocytes % 0 % 05/12/17 05:13 Blast Cells % 0 % 05/12/17 05:13 Nucleated RBC % Not Reportable 05/12/17 05:13 Seg Neutrophils # Man 13.8 K/mm3 (1.8-7.7) H 05/12/17 05:13 Band Neutrophils # 0.0 K/mm3 05/12/17 05:13 Lymphocytes # (Manual) 0.4 K/mm3 (1.2-5.4) L 05/12/17 05:13 Abs React Lymphs (Man) 0.0 K/mm3 05/12/17 05:13 Monocytes # (Manual) 0.1 K/mm3 (0.0-0.8) 05/12/17 05:13 Eosinophils # (Manual) 0.0 K/mm3 (0.0-0.4) 05/12/17 05:13 Basophils # (Manual) 0.0 K/mm3 (0.0-0.1) 05/12/17 05:13 Metamyelocytes # 0.0 K/mm3 05/12/17 05:13 Myelocytes # 0.0 K/mm3 05/12/17 05:13 Promyelocytes # 0.0 K/mm3 05/12/17 05:13 Blast Cells # 0.0 K/mm3 05/12/17 05:13 WBC Morphology Not Reportable 05/12/17 05:13 Hypersegmented Neuts Not Reportable 05/12/17 05:13 Hyposegmented Neuts Not Reportable 05/12/17 05:13 Hypogranular Neuts Not Reportable 05/12/17 05:13 Smudge Cells Not Reportable 05/12/17 05:13 Toxic Granulation Not Reportable 05/12/17 05:13 Toxic Vacuolation Not Reportable 05/12/17 05:13 Dohle Bodies Not Reportable 05/12/17 05:13 Pelger-Huet Anomaly Not Reportable 05/12/17 05:13 Alejandro Rods Not Reportable 05/12/17 05:13 Platelet Estimate Appears normal 05/12/17 05:13 Clumped Platelets Not Reportable 05/12/17 05:13 Plt Clumps, EDTA Not Reportable 05/12/17 05:13 Large Platelets Not Reportable 05/12/17 05:13 Giant Platelets Not Reportable 05/12/17 05:13 Platelet Satelliting Not Reportable 05/12/17 05:13 Plt Morphology Comment Not Reportable 05/12/17 05:13 RBC Morphology Normal 05/12/17 05:13 Dimorphic RBCs Not Reportable 05/12/17 05:13 Polychromasia Not Reportable 05/12/17 05:13 Hypochromasia Not Reportable 05/12/17 05:13 Poikilocytosis Not Reportable 05/12/17 05:13 Anisocytosis Not Reportable 05/12/17 05:13 Microcytosis Not Reportable 05/12/17 05:13 Macrocytosis Not Reportable 05/12/17 05:13 Spherocytes Not Reportable 05/12/17 05:13 Pappenheimer Bodies Not Reportable 05/12/17 05:13 Sickle Cells Not Reportable 05/12/17 05:13 Target Cells Not Reportable 05/12/17 05:13 Tear Drop Cells Not Reportable 05/12/17 05:13 Ovalocytes Not Reportable 05/12/17 05:13 Helmet Cells Not Reportable 05/12/17 05:13 Brown-[place] Bodies Not Reportable 05/12/17 05:13 [place] Rings Not Reportable 05/12/17 05:13 Migel Cells Not Reportable 05/12/17 05:13 Bite Cells Not Reportable 05/12/17 05:13 Crenated Cell Not Reportable 05/12/17 05:13 Elliptocytes Not Reportable 05/12/17 05:13 Acanthocytes (Spur) Not Reportable 05/12/17 05:13 Rouleaux Not Reportable 05/12/17 05:13 Hemoglobin C Crystals Not Reportable 05/12/17 05:13 Schistocytes Not Reportable 05/12/17 05:13 Malaria parasites Not Reportable 05/12/17 05:13 Damion Bodies Not Reportable 05/12/17 05:13 Hem Pathologist Commnt No 05/12/17 05:13 Sodium 137 mmol/L (137-145) 05/11/17 17:23 Potassium 4.3 mmol/L (3.6-5.0) 05/11/17 17:23 Chloride 99.8 mmol/L (98-107) 05/11/17 17:23 Carbon Dioxide 18 mmol/L (22-30) L 05/12/17 05:13 Anion Gap 24 mmol/L 05/11/17 17:23 BUN 22 mg/dL (9-20) H 05/12/17 05:13 Creatinine 0.8 mg/dL (0.8-1.5) 05/12/17 05:13 Estimated GFR > 60 ml/min 05/12/17 05:13 BUN/Creatinine Ratio 27.50 % 05/12/17 05:13 Glucose 263 mg/dL (75-100) H 05/12/17 05:13 POC Glucose 241 (70-105) H 05/12/17 06:30 Hemoglobin A1c 9.0 % (4-6) H 05/11/17 17:23 Calcium 9.0 mg/dL (8.4-10.2) 05/12/17 05:13 Total Bilirubin 0.50 mg/dL (0.1-1.2) 05/12/17 05:13 AST 11 units/L (5-40) 05/12/17 05:13 ALT 17 units/L (7-56) 05/12/17 05:13 Alkaline Phosphatase 81 units/L (35-129) 05/12/17 05:13 Total Protein 6.5 g/dL (6.3-8.2) 05/12/17 05:13 Albumin 4.1 g/dL (3.9-5) 05/12/17 05:13 Albumin/Globulin Ratio 1.7 % 05/12/17 05:13
[2017-05-12] MEDS ORDERED: NOVOLOG SUB-Q SCH (11:30)
--- NOTE | 2017-05-12 11:42 | Discharge Summary ---
Providers - Providers Date of Admission: 05/11/17 18:20 Date of discharge: 05/12/17 Attending physician: ANUPAM LOUISE MD Primary care physician: F[employer]TTED [employer] REPAIRER Hospitalization Reason for admission: ASTHMA EXACERBATION Condition: Stable Hospital course: Patient is a 56y/o male with hx of asthma admitted with asthma exacerbation despite compliance with neb and also 30mg of prednisione in addition to zithromax WITH NO IMPROVEMENT. SINCE admission he has clinical improved, although still with some wheezing at the bases, he is adamant about being discharged to go home and states he has managed this for >30 years and knows his body Acute Respiratory failure secondary to Asthma exacerbation * Continue steroids and taper ON DISCHARGE * Continue abx with levaquin FOR A FEW DAYS * Peakflow meter Education Asthma exacerbation * As noted above Uncontrolled DM * prescribed meds * Continue Metformin and Amaryl Leukocytosis possibly due to steroids, eval for infectious process Disposition: DC-01 TO HOME OR SELFCARE Time spent for discharge: 35 mins Core Measure Documentation - Palliative Care Palliative Care/ Comfort Measures: Not Applicable - Core Measures Any of the following diagnoses?: none - VTE Discharge Requirements Deep Vein Thrombosis/Pulmonary Embolism Present on Admission: No Exam - Physical Exam Narrative exam: VITAL SIGNS: Reviewed. GENERAL: The patient appeared well nourished and normally developed. Vital signs as documented. HEAD: No signs of head trauma. EYES: Pupils are equal. Extraocular motions intact. EARS: Hearing grossly intact. MOUTH: Oropharynx is normal. NECK: No adenopathy, no JVD. CHEST: Chest with mild expiratory wheezes bilaterally no rhonchi or rales CARDIAC: Regular rate and rhythm. S1 and S2, without murmurs, gallops, or rubs. VASCULAR: No Edema. Peripheral pulses normal and equal in all extremities. ABDOMEN: Soft, without detectable tenderness. No sign of distention. No rebound or guarding, and no masses palpated. Bowel Sounds normal. MUSCULOSKELETAL: Good range of motion of all major joints. Extremities without clubbing, cyanosis or edema. NEUROLOGIC EXAM: Alert and oriented x 3. No focal sensory or strength deficits. Speech normal. Follows commands. PSYCHIATRIC: Mood normal. SKIN: No rash or lesions. - Constitutional Vitals: Temp Pulse Resp BP Pulse Ox 98.3 F 112 H 20 123/61 93 05/12/17 07:20 05/12/17 09:49 05/12/17 09:49 05/12/17 07:20 05/12/17 09:45 Plan Activity: advance as tolerated, fall precautions Diet: low fat, diabetic Special Instructions: record blood sugar diary, smoking cessation Additional Instructions: must have yearly eye and feet exam as part of diabetic managment. Follow up with: PRIMARY CARE, [Primary Care Provider] - 3-5 Days Prescriptions: Glimepiride [Amaryl] 2 mg PO QDDIAB #30 tablet Levofloxacin [Levaquin] 750 mg PO QDAY #5 tablet metFORMIN [Glucophage] 500 mg PO BIDDIAB #60 tablet predniSONE [Deltasone] 10 mg PO .TAPER #48 tab
[2017-05-12] MEDS ORDERED: SODIUM BICARBONATE PO ONE (12:00)
[2017-05-12 13:24] VITALS: BP 119/58
== END 2017-05-12 15:15 | disposition home or self-care (01) | DRG 189 ==
LOC: ED 12:26 → 3A 18:20
PROVIDERS: ADMIT Internal Medicine; ATTEND Internal Medicine
DX: J96.01 Acute respiratory failure with hypoxia (principal); J45.901 Unspecified asthma with (acute) exacerbation; E11.65 Type 2 diabetes mellitus with hyperglycemia; Z82.49 Family history of ischemic heart disease and other diseases of the circulatory system
CPT/HCPCS: 36415; 71010; 80048; 80053; 82962; 83036; 85007; 85025; 93005; 93010; 94640; J1815; J1956; J2920; J2930; J3475; J7030

== ENCOUNTER 2017-07-08 09:47 | Emergency (ER) | payer SELFPAY ==
[2017-07-08] MEDS ORDERED: ATROVENT IH ONE (10:01)
[2017-07-08] MEDS ORDERED: PROVENTIL IH ONE (10:01)
--- NOTE | 2017-07-08 10:01 | Emergency Department Report ---
Stated Complaint: SHORTNESS Time Seen by Provider: 07/08/17 10:01 - HPI History of Present Illness: Patient here presented with asthma attack. He said he short of breath and have difficulty breathing and wheezing. Similar incident in the past with asthma attack. O2 sat is 93% on room air. reports chest tightness. Denies any fever or chills. Reports cough. - ROS Review of Systems: All systems were negative unless stated in HPI above - Exam Vital Signs: Vital Signs 07/08/17 10:04 Temperature 98.3 F Pulse Rate 93 H Respiratory 24 Rate Blood Pressure 165/92 O2 Sat by Pulse 93 Oximetry Physical Exam: Gen.: This is a 56-year-old male who appears to be in mild distress from asthma exacerbation. CV: S1, S2. Regular rate rhythm. Lungs: Wheezing throughout lung razo, positive cough patient is tachypneic at 24 and O2 sat 93%. MSE screening note: Focused history and physical exam performed. Due to findings the following was ordered:brought back to ED ED Medical Decision Making - Medical Decision Making MDM: Patient screened by provider in triage area. Appropriate protocol initiated and patient to be seen in main ED by provider. O2 @2 l ED Disposition for MSE Condition: Stable
[2017-07-08] MEDS ORDERED: MAGNESIUM SULFATE 2GM/50ML 2 GM/50 ML BAG IV ONE (10:03)
[2017-07-08 10:08] VITALS: BP 165/92
--- NOTE | 2017-07-08 10:36 | XRay Report ---
CHEST 2 VIEWS INDICATION: Shortness of breath. COMPARISON: 05/11/2017. FINDINGS: PA and lateral chest radiographs demonstrate normal cardiomediastinal silhouette. Clear, slightly hyperexpanded lungs. Intact bones. CONCLUSION: No acute disease in the chest. Thank you for the opportunity to participate in this patient's care.
--- NOTE | 2017-07-08 12:13 | Emergency Department Report ---
ED Asthma HPI - General Chief Complaint: Adult Asthma Stated Complaint: SHORTNESS Time Seen by Provider: 07/08/17 10:01 Source: patient Mode of arrival: Ambulatory Limitations: No Limitations - History of Present Illness Initial Comments: This is a 56-year-old male with a history of asthma presents to ED complaining of having an asthma exacerbation this morning. Patient states he woke up early today around 9 AM and started experiencing some tightness in his chest. Patient states he took his inhaler and to no relief. Patient states he has nebulizer machines at home but got care drinking to the ER after his inhaler did not work. He denies any coughing, chest pain, difficulty breathing. - Related Data Home Medications Medication Instructions Recorded Confirmed Last Taken ALBUTEROL Inhaler [ProAir HFA 1 puff INHALATION BID 11/01/13 02/16/17 02/16/17 Inhaler] Previous Rx's Medication Instructions Recorded Last Taken Type oxyCODONE /ACETAMINOPHEN [Percocet 1 tab PO QHS PRN #7 tablet 02/18/17 Unknown Rx 5/325 mg] Glimepiride [Amaryl] 2 mg PO QDDIAB #30 tablet 05/12/17 Unknown Rx Levofloxacin [Levaquin] 750 mg PO QDAY #5 tablet 05/12/17 Unknown Rx metFORMIN [Glucophage] 500 mg PO BIDDIAB #60 tablet 05/12/17 Unknown Rx predniSONE [Deltasone] 10 mg PO .TAPER #48 tab 05/12/17 Unknown Rx ALBUTEROL NEB's [Proventil 0.083% 2.5 mg IH Q4H PRN #25 neb 07/08/17 Unknown Rx NEBS] Allergies Allergy/AdvReac Type Severity Reaction Status Date / Time No Known Allergies Allergy Verified 08/16/14 04:13 ED Review of Systems ROS: Stated complaint: SHORTNESS Other details as noted in HPI Constitutional: denies: chills, fever Eyes: denies: eye pain, eye discharge, vision change ENT: denies: ear pain, throat pain, congestion Respiratory: denies: cough, shortness of breath, wheezing Cardiovascular: denies: chest pain, palpitations Endocrine: no symptoms reported Gastrointestinal: denies: abdominal pain, nausea, diarrhea Genitourinary: denies: urgency, dysuria Musculoskeletal: denies: back pain, joint swelling, arthralgia Skin: denies: rash, lesions Neurological: denies: headache, weakness, paresthesias Psychiatric: denies: anxiety, depression Hematological/Lymphatic: denies: easy bleeding, easy bruising ED Past Medical Hx - Past Medical History Previous Medical History?: Yes Hx Hypertension: No Hx CVA: No Hx Heart Attack/AMI: No Hx Congestive Heart Failure: No Hx Diabetes: No Hx Deep Vein Thrombosis: No Hx Pulmonary Embolism: No Hx GERD: No Hx Liver Disease: No Hx Renal Disease: No Hx Sickle Cell Disease: No Hx Arthritis: No Hx Headaches / Migraines: No Hx Seizures: No Hx Kidney Stones: No Hx Psychiatric Treatment: No Hx Asthma: Yes Hx COPD: No Hx Tuberculosis: No Hx Dementia: No Hx HIV: No - Surgical History Hx Coronary Stent: No Hx Open Heart Surgery: No Hx Pacemaker: No Hx Internal Defibrillator: No Hx Cholecystectomy: No Hx Appendectomy: No Hx Breast Surgery: No - Social History Smoking Status: Never Smoker Substance Use Type: None - Medications Home Medications: Home Medications Medication Instructions Recorded Confirmed Last Taken Type ALBUTEROL Inhaler [ProAir HFA 1 puff INHALATION BID 11/01/13 02/16/17 02/16/17 History Inhaler] oxyCODONE /ACETAMINOPHEN [Percocet 1 tab PO QHS PRN #7 tablet 02/18/17 Unknown Rx 5/325 mg] Glimepiride [Amaryl] 2 mg PO QDDIAB #30 tablet 05/12/17 Unknown Rx Levofloxacin [Levaquin] 750 mg PO QDAY #5 tablet 05/12/17 Unknown Rx metFORMIN [Glucophage] 500 mg PO BIDDIAB #60 tablet 05/12/17 Unknown Rx predniSONE [Deltasone] 10 mg PO .TAPER #48 tab 05/12/17 Unknown Rx ALBUTEROL NEB's [Proventil 0.083% 2.5 mg IH Q4H PRN #25 neb 07/08/17 Unknown Rx NEBS] ED Physical Exam - General Limitations: No Limitations General appearance: alert, in no apparent distress - Head Head exam: Present: atraumatic, normocephalic - Eye Eye exam: Present: normal appearance, PERRL, EOMI - ENT ENT exam: Present: mucous membranes moist - Neck Neck exam: Present: normal inspection, full ROM - Respiratory Respiratory exam: Present: normal lung sounds bilaterally. Absent: respiratory distress, wheezes, rales, rhonchi, stridor, chest wall tenderness, accessory muscle use, decreased breath sounds - Cardiovascular Cardiovascular Exam: Present: regular rate, normal rhythm. Absent: systolic murmur, diastolic murmur, rubs, gallop - GI/Abdominal GI/Abdominal exam: Present: soft, normal bowel sounds. Absent: distended, tenderness - Rectal Rectal exam: Present: deferred - Extremities Exam Extremities exam: Present: normal inspection - Back Exam Back exam: Present: normal inspection - Neurological Exam Neurological exam: Present: alert, oriented X3, CN II-XII intact, normal gait - Psychiatric Psychiatric exam: Present: normal affect, normal mood - Skin Skin exam: Present: warm, dry, intact, normal color. Absent: rash ED Course Vital Signs 07/08/17 07/08/17 10:04 13:29 Temperature 98.3 F Pulse Rate 93 H 89 Respiratory 24 16 Rate Blood Pressure 165/92 O2 Sat by Pulse 93 96 Oximetry ED Medical Decision Making - Lab Data Temp Pulse Resp BP Pulse Ox 98.3 F 89 16 165/92 96 07/08/17 10:04 07/08/17 13:29 07/08/17 13:29 07/08/17 10:04 07/08/17 13:29 - Radiology Data Radiology results: report reviewed, image reviewed CHEST 2 VIEWS INDICATION: Shortness of breath. COMPARISON: 05/11/2017. FINDINGS: PA and lateral chest radiographs demonstrate normal cardiomediastinal silhouette. Clear, slightly hyperexpanded lungs. Intact bones. CONCLUSION: No acute disease in the chest. Thank you for the opportunity to participate in this patient's care. Transcribed By: RS Dictated By: KENZIE BARBER MD Electronically Authenticated By: KENZIE BARBER MD Signed Date/Time: 07/08/17 1031 - Medical Decision Making 56-year-old male presents with exacerbation of asthma. ED course: Patient received Solu-Medrol IV, Mag Sulf in triage, Respiratory breathing treatment administered in ED. Chest x-ray normal normal abnormal findings, see results above Discussed Xray findings with the patient Patient reports feeling much better and has no difficulty breathing after treatments. Post breathing treatment evaluation: Patient had no wheezing, no refills, lungs clear to auscultation bilaterally Discussed patient to continue to use inhaler and nebulizer treatments at home as needed. Discussed the patient to continue his prednisone as needed. Patient states he has these medication at home prednisone, nebulizer treatments and inhaler at home. Patient is in no acute distress or respiratory distress Patient is resting comfortably in the ED bed. Patient's saturation at 96% prior to discharge, pulse rate normalized, respiratory rate normalized Discussed the patient to follow up with his primary care physician. Critical care attestation.: If time is entered above; I have spent that time in minutes in the direct care of this critically ill patient, excluding procedure time. ED Disposition Clinical Impression: Asthma exacerbation Qualifiers: Asthma severity: unspecified severity Asthma persistence: intermittent Qualified Code(s): J45.21 - Mild intermittent asthma with (acute) exacerbation Disposition: TO HOME OR SELFCARE Is pt being admited?: No Does the pt Need Aspirin: No Condition: Stable Instructions: Asthma (ED) Prescriptions: ALBUTEROL NEB's [Proventil 0.083% NEBS] 2.5 mg IH Q4H PRN #25 neb PRN Reason: Wheezing Referrals: PRIMARY MD VISHAL [Primary Care Provider] - 3-5 Days JOANN LBANCO MD [Staff Physician] - 3-5 Days ALEKSANDRA FRITZ MD [Referring] - 3-5 Days [facility] [Outside] - 3-5 Days [facility] [Outside] - 3-5 Days [facility] [Outside] - 3-5 Days Forms: Work/School Release Form(ED) Time of Disposition: 13:04
== END 2017-07-08 13:30 | disposition home or self-care (01) ==
LOC: ED 09:47
DX: J45.21 Mild intermittent asthma with (acute) exacerbation (principal)
CPT/HCPCS: 71020; 93005; 93010; 94640; 96365; 96375; 99284; J2930; J3475

== ENCOUNTER 2017-07-25 16:30 | Emergency (ER) | payer SELFPAY ==
[2017-07-25] MEDS ORDERED: PROVENTIL IH ONE ×2 (16:45→17:03)
[2017-07-25] MEDS ORDERED: ATROVENT IH ONE ×2 (16:45→17:03)
[2017-07-25] MEDS ORDERED: NACL 0.9% 1000 ML 1,000 ML IV ONE (23:08)
[2017-07-25] MEDS ORDERED: XOPENEX IH ONE (23:08)
[2017-07-25] MEDS ORDERED: MAGNESIUM SULFATE IV ONE (23:08)
--- NOTE | 2017-07-25 23:13 | Emergency Department Report ---
ED Asthma HPI - General Chief Complaint: Adult Asthma Stated Complaint: WHEEZING ,COUGHING Time Seen by Provider: 07/25/17 22:58 Source: patient Mode of arrival: Ambulatory Limitations: No Limitations - History of Present Illness MD Complaint: "asthma attack", shortness of breath, wheezing -: days(s) (2 days) Asthma History: history of frequent attac, history of prior ED visit Severity: moderate, similar to prior Context: pet exposure Associated Symptoms: denies: productive cough, dry cough, fever, chest pain, hemoptysis, leg edema Treatments Prior to Arrival: inhaled bronchodilator - Related Data Current Asthma Therapy: inhaled bronchodilator Home Medications Medication Instructions Recorded Confirmed Last Taken ALBUTEROL Inhaler [ProAir HFA 1 puff INHALATION BID 11/01/13 02/16/17 02/16/17 Inhaler] Previous Rx's Medication Instructions Recorded Last Taken Type oxyCODONE /ACETAMINOPHEN [Percocet 1 tab PO QHS PRN #7 tablet 02/18/17 Unknown Rx 5/325 mg] Glimepiride [Amaryl] 2 mg PO QDDIAB #30 tablet 05/12/17 Unknown Rx Levofloxacin [Levaquin] 750 mg PO QDAY #5 tablet 05/12/17 Unknown Rx metFORMIN [Glucophage] 500 mg PO BIDDIAB #60 tablet 05/12/17 Unknown Rx predniSONE [Deltasone] 10 mg PO .TAPER #48 tab 05/12/17 Unknown Rx ALBUTEROL NEB's [Proventil 0.083% 2.5 mg IH Q4H PRN #25 neb 07/08/17 Unknown Rx NEBS] Allergies Allergy/AdvReac Type Severity Reaction Status Date / Time No Known Allergies Allergy Verified 08/16/14 04:13 ED Review of Systems ROS: Stated complaint: WHEEZING ,COUGHING Other details as noted in HPI Comment: All other systems reviewed and negative Constitutional: no symptoms reported. denies: fever Respiratory: cough, shortness of breath, SOB with exertion, SOB at rest, wheezing Cardiovascular: dyspnea on exertion. denies: chest pain, palpitations, edema Gastrointestinal: denies: abdominal pain, nausea, vomiting, diarrhea, constipation, hematemesis, hematochezia Genitourinary: denies: urgency, dysuria, frequency, hematuria, discharge Neurological: denies: headache, weakness, numbness, paresthesias ED Past Medical Hx - Past Medical History Previous Medical History?: Yes Hx Hypertension: No Hx CVA: No Hx Heart Attack/AMI: No Hx Congestive Heart Failure: No Hx Diabetes: No Hx Deep Vein Thrombosis: No Hx Pulmonary Embolism: No Hx GERD: No Hx Liver Disease: No Hx Renal Disease: No Hx Sickle Cell Disease: No Hx Arthritis: No Hx Headaches / Migraines: No Hx Seizures: No Hx Kidney Stones: No Hx Psychiatric Treatment: No Hx Asthma: Yes Hx COPD: No Hx Tuberculosis: No Hx Dementia: No Hx HIV: No - Surgical History Past Surgical History?: No Hx Coronary Stent: No Hx Open Heart Surgery: No Hx Pacemaker: No Hx Internal Defibrillator: No Hx Cholecystectomy: No Hx Appendectomy: No Hx Breast Surgery: No - Social History Smoking Status: Former Smoker Substance Use Type: None - Medications Home Medications: Home Medications Medication Instructions Recorded Confirmed Last Taken Type ALBUTEROL Inhaler [ProAir HFA 1 puff INHALATION BID 11/01/13 02/16/17 02/16/17 History Inhaler] oxyCODONE /ACETAMINOPHEN [Percocet 1 tab PO QHS PRN #7 tablet 02/18/17 Unknown Rx 5/325 mg] Glimepiride [Amaryl] 2 mg PO QDDIAB #30 tablet 05/12/17 Unknown Rx Levofloxacin [Levaquin] 750 mg PO QDAY #5 tablet 05/12/17 Unknown Rx metFORMIN [Glucophage] 500 mg PO BIDDIAB #60 tablet 05/12/17 Unknown Rx predniSONE [Deltasone] 10 mg PO .TAPER #48 tab 05/12/17 Unknown Rx ALBUTEROL NEB's [Proventil 0.083% 2.5 mg IH Q4H PRN #25 neb 07/08/17 Unknown Rx NEBS] ED Physical Exam - General Limitations: No Limitations General appearance: alert, in distress (moderate respiratory distress) - Head Head exam: Present: normocephalic, normal inspection - Eye Eye exam: Present: normal appearance - ENT ENT exam: Present: normal exam - Neck Neck exam: Present: normal inspection - Respiratory Respiratory exam: Present: respiratory distress, wheezes, rales, rhonchi, decreased breath sounds, prolonged expiratory. Absent: stridor, chest wall tenderness, accessory muscle use - Cardiovascular Cardiovascular Exam: Present: regular rate, normal rhythm, normal heart sounds - GI/Abdominal GI/Abdominal exam: Present: soft, normal bowel sounds. Absent: distended, tenderness, guarding, rebound, rigid, mass, bruit, pulsatile mass - Extremities Exam Extremities exam: Present: normal inspection, normal capillary refill - Back Exam Back exam: Present: normal inspection. Absent: tenderness, CVA tenderness (R), CVA tenderness (L) - Neurological Exam Neurological exam: Present: alert, oriented X3, CN II-XII intact, normal gait, reflexes normal. Absent: motor sensory deficit - Skin Skin exam: Present: warm, intact, normal color. Absent: cyanosis, diaphoretic, erythema ED Course Vital Signs 07/25/17 07/25/17 07/25/17 16:37 22:55 23:50 Temperature 98.4 F Pulse Rate 98 H Pulse Rate [ 76 Anterior Bilateral Throughout] Respiratory 26 H 26 H Rate Respiratory 18 Rate [Anterior Bilateral Throughout] Blood Pressure 149/100 O2 Sat by Pulse 92 93 Oximetry 07/26/17 00:00 Temperature Pulse Rate Pulse Rate [ 75 Anterior Bilateral Throughout] Respiratory Rate Respiratory 18 Rate [Anterior Bilateral Throughout] Blood Pressure O2 Sat by Pulse Oximetry - Reevaluation(s) Reevaluation #1: 07/26/17 00:45 Patient is stating that he is feeling much better. On exam, good airway movements.. ED Medical Decision Making - Radiology Data Radiology results: image reviewed interpreted by me: Chest x-ray no acute findings. Critical care attestation.: If time is entered above; I have spent that time in minutes in the direct care of this critically ill patient, excluding procedure time. ED Disposition Clinical Impression: Asthma exacerbation Disposition: DC/TX-65 PSY HOSP/PSY UNIT Is pt being admited?: No Condition: Stable Instructions: Asthma (ED) Referrals: PRIMARY CARE, [Primary Care Provider] - 3-5 Days
[2017-07-25] MEDS ORDERED: MAGNESIUM SULFATE 1 GM in NACL 0.9% 50 ML IV ONE (23:15)
[2017-07-25] MEDS ORDERED: MAGNESIUM SULFATE 2GM/50ML 2 GM/50 ML BAG IV ONE (23:21)
[2017-07-26 01:28] VITALS: BP 108/74
--- NOTE | 2017-07-26 08:13 | XRay Report ---
CHEST 2 VIEWS INDICATION: Shortness of breath. COMPARISON: 07/08/2017 FINDINGS: Frontal and lateral chest radiographs demonstrate stable cardiomediastinal silhouette, aortic knob calcifications and mildly hyperexpanded lungs/COPD. No pleural effusions or CHF. Stable thoracic spondylosis and possible osteopenia. CONCLUSION: No acute chest process or significant interval change, as described. Thank you for the opportunity to participate in this patient's care.
== END 2017-07-26 01:32 | disposition home or self-care (01) ==
LOC: ED 16:30
DX: J45.901 Unspecified asthma with (acute) exacerbation (principal); Z87.891 Personal history of nicotine dependence
CPT/HCPCS: 71020; 94640; 96365; 96375; 99284; J2930; J3475; J7030

== ENCOUNTER 2020-12-28 21:06 | Emergency (ER) | payer SELFPAY ==
[2020-12-29] MEDS ORDERED: IPRATROPIUM/ALBUTEROL SULFATE 3 ML AMPUL.NEB IH ONE (06:29)
[2020-12-29] MEDS ORDERED: MECLIZINE 25 MG TAB PO ONE (06:29)
--- NOTE | 2020-12-29 06:34 | Emergency Department Report ---
HPI - General Chief Complaint: Dizziness Time Seen by Provider: 12/29/20 06:20 - HPI HPI: Room 25 The patient is a 60-year-old male present with a chief complaint of "my blood pressure." The patient states last night after eating a pork chop began to feel dizzy. Patient states he felt as though the room was spinning. Patient states when he lies down the symptoms improve when he stood up the symptoms returned. Patient admitted to nausea but denies vomiting. Patient admits to an occasional bitemporal headache but denies any recent preceding trauma. Patient states he has been compliant with his blood pressure medication. Patient denies chest pain or shortness of breath. The patient states his dizziness has improved dramatically since he has been in the emergency department but there is still some slight dizziness present. Patient denies previous episodes ED Past Medical Hx - Past Medical History Previous Medical History?: Yes Hx Hypertension: Yes Hx Diabetes: Yes Hx Asthma: Yes - Family History Family history: no significant - Social History Smoking Status: Never Smoker Substance Use Type: None (Denies illicit drug use) - Medications Home Medications: Home Medications Medication Instructions Recorded Confirmed Last Taken Type Albuterol Mdi (or & Nicu Only) 1 puff INHALATION BID 11/01/13 02/16/17 02/16/17 History [ProAir HFA Inhaler] oxyCODONE /ACETAMINOPHEN [Percocet 1 tab PO QHS PRN #7 tablet 02/18/17 Unknown Rx 5/325 mg] Glimepiride [Amaryl] 2 mg PO QDDIAB #30 tablet 05/12/17 Unknown Rx levoFLOXacin [Levaquin] 750 mg PO QDAY #5 tablet 05/12/17 Unknown Rx metFORMIN [Glucophage] 500 mg PO BIDDIAB #60 tablet 05/12/17 Unknown Rx predniSONE 10 mg PO .TAPER #48 tab 05/12/17 Unknown Rx ALBUTEROL NEB's [Proventil 0.083% 2.5 mg IH Q4H PRN #25 neb 07/08/17 Unknown Rx NEBS] Prednisone [predniSONE 10 mg 10 mg PO .TAPER #1 tab.ds.pk 07/26/17 Unknown Rx (6-Day Pack, 21 Tabs)] levoFLOXacin [Levaquin TAB] 500 mg PO QDAY #7 tablet 07/26/17 Unknown Rx Azithromycin [Zithromax Z-CHAU] 0 mg PO DAILY #6 tab 12/29/20 Unknown Rx Meclizine [Antivert] 25 mg PO TID PRN #20 tablet 12/29/20 Unknown Rx ED Review of Systems ROS: Stated complaint: JOSE, DIZZINESS Other details as noted in HPI Constitutional: no symptoms reported Eyes: denies: eye pain ENT: denies: throat pain Respiratory: denies: shortness of breath Cardiovascular: denies: chest pain Endocrine: no symptoms reported Gastrointestinal: nausea. denies: vomiting Genitourinary: denies: dysuria Musculoskeletal: denies: back pain Neurological: headache, vertigo Physical Exam - Physical Exam Vital Signs: Vital Signs 12/28/20 12/29/20 23:16 05:01 Temperature 98.0 F Pulse Rate 67 62 Respiratory 16 18 Rate Blood Pressure 112/82 141/67 O2 Sat by Pulse 95 96 Oximetry Physical Exam: GENERAL: The patient is well-developed well-nourished male lying on stretcher not appearing to be in acute distress. [] HEENT: Normocephalic. Atraumatic. Extraocular motions are intact. Patient has moist mucous membranes. No nystagmus present NECK: Supple. No meningitic signs are noted. Trachea midline CHEST/LUNGS: Faint occasional expiratory wheezes. There is no respiratory distress noted. HEART/CARDIOVASCULAR: Regular. There is no tachycardia. There is no gallop rub or murmur. ABDOMEN: Abdomen is soft, nontender. Patient has normal bowel sounds. There is no abdominal distention. SKIN: There is no rash. There is no edema. There is no diaphoresis. NEURO: The patient is awake, alert, and oriented. The patient is cooperative. The patient has no focal neurologic deficits. The patient has normal speech. Cranial nerves II through XII grossly intact. No dysmetria noted with [id number] bilaterally. GCS 15. NIHSS= 0 MUSCULOSKELETAL: There is no evidence of acute injury. ED Course Vital Signs 12/28/20 12/29/20 23:16 05:01 Temperature 98.0 F Pulse Rate 67 62 Respiratory 16 18 Rate Blood Pressure 112/82 141/67 O2 Sat by Pulse 95 96 Oximetry ED Medical Decision Making - Lab Data Result diagrams: 12/29/20 07:18 12/29/20 07:18 Laboratory Tests 12/29/20 12/29/20 07:18 07:18 WBC 8.7 RBC 5.44 H Hgb 16.0 H Hct 45.7 H MCV 84 MCH 29 MCHC 35 H RDW 13.1 L Plt Count 249 Lymph % (Auto) 19.6 [place] % (Auto) 8.4 H Eos % (Auto) 9.4 H Baso % (Auto) 0.6 Lymph # (Auto) 1.7 [place] # (Auto) 0.7 Eos # (Auto) 0.8 H Baso # (Auto) 0.1 Seg Neutrophils % 62.0 Seg Neutrophils # 5.4 Sodium 137 Potassium 4.4 Chloride 100.9 Carbon Dioxide 26 Anion Gap 15 BUN 20 Creatinine 0.7 L Estimated GFR > 60 BUN/Creatinine Ratio 29 Glucose 104 H Calcium 9.4 Total Creatine Kinase 96 CK-MB (CK-2) 2.2 CK-MB (CK-2) Rel Index 2.2 Troponin T < 0.010 - EKG Data -: EKG Interpreted by Nm EKG shows normal: sinus rhythm Rate: normal - EKG Data When compared to previous EKG there are: previous EKG unavailable Interpretation: normal EKG - Radiology Data Radiology results: report reviewed (CT head), image reviewed (CT head) [facility] [address] [place] [address] Cat Scan Report Signed Patient: TUNDE CRISOSTOMO MR#: [id number] : 1960 Acct:[id number] Age/Sex: 60 / M ADM Date: 12/28/20 Loc: ED Attending Dr: Ordering Physician: ZINA PAGAN MD Date of Service: 12/29/20 Procedure(s): CT head/brain wo con Accession Number(s): [id number] cc: ZINA PAGAN MD CT HEAD WITHOUT CONTRAST INDICATION / CLINICAL INFORMATION: Vertigo. TECHNIQUE: Axial imaging performed from the skull apex through the skull base without the use of contrast. Sagittal and coronal reformatted images. All CT scans at this location are performed using CT dose reduction for ALARA by means of automated exposure control. COMPARISON: None available. FINDINGS: CEREBRAL PARENCHYMA: No significant abnormality. No acute territorial infarct. HEMORRHAGE: None. EXTRA- AXIAL SPACES: Normal in size and morphology for the patient's age. VENTRICULAR SYSTEM: Normal in size and morphology for the patient's age. MIDLINE SHIFT OR HERNIATION: None. CEREBELLUM / BRAINSTEM: No significant abnormality. CALVARIUM: No significant abnormality. ORBITS: Normal as visualized. PARANASAL SINUSES / MASTOID AIR CELLS: There is moderate to severe mucosal thickening throughout the ethmoid sinuses. Small fluid level is identified in the visualized superior right maxillary sinus. The mastoid air cells and middle ear contents are unremarkable. SOFT TISSUES of HEAD: No significant abnormality. ADDITIONAL FINDINGS: None. IMPRESSION: Normal CT brain. Mild to moderate sinus disease as described, likely chronic. Correlate for acute symptoms. Signer Name: Raul Lemon Jr, MD Signed: 12/29/2020 8:00 AM Workstation Name: [id number] Transcribed By: TTR Dictated By: RAUL LEMON JR, MD Electronically Authenticated By: RAUL LEMON JR, MD Signed Date/Time: 12/29/20 0800 DD/ [id number] TD/TT: Print Cancel - Differential Diagnosis Central vertigo, peripheral vertigo, symptomatic anemia, dehydration, elect Critical care attestation.: If time is entered above; I have spent that time in minutes in the direct care of this critically ill patient, excluding procedure time. ED Disposition Clinical Impression: Vertigo, Sinusitis Disposition: DC-01 TO HOME OR SELFCARE Is pt being admited?: No Does the pt Need Aspirin: No Condition: Stable Instructions: Dizziness, [id number], Sinusitis, Adult, Vertigo Additional Instructions: Return to the emergency department should you develop worsening symptoms, inability to tolerate food or liquids, high fever or any other concerns Prescriptions: Meclizine [Antivert] 25 mg PO TID PRN #20 tablet PRN Reason: Vertigo Azithromycin [Zithromax Z-CHAU] 0 mg PO DAILY #6 tab Referrals: NATASHA RODGERS MD [Primary Care Provider] - 3-5 Days ELIECER ANDREA MD [Staff Physician] - 3-5 Days [facility] [Provider Group] - 3-5 Days Time of Disposition: 10:09
[2020-12-29 08:00] LABS: Basophils # (Auto) 0.1 K/mm3 (0.0-0.1); Basophils % (Auto) 0.6 % (0.0-1.8); Eosinophils # (Auto) 0.8 K/mm3 (0.0-0.4); Eosinophils % (Auto) 9.4 % (0.0-4.3); Hematocrit 45.7 % (35.5-45.6); Lymphocytes # (Auto) 1.7 K/mm3 (1.2-5.4); Lymphocytes % (Auto) 19.6 % (13.4-35.0); Mean Corpuscular HGB Conc 35 % (32-34); Mean Corpuscular Volume 84 fl (84-94); Monocytes # (Auto) 0.7 K/mm3 (0.0-0.8); Monocytes % (Auto) 8.4 % (0.0-7.3); Platelet Count 249 K/mm3 (140-440); Red Blood Count 5.44 M/mm3 (3.65-5.03); Red Cell Distribution Width 13.1 % (13.2-15.2)
--- NOTE | 2020-12-29 08:04 | Cat Scan Report ---
CT HEAD WITHOUT CONTRAST INDICATION / CLINICAL INFORMATION: Vertigo. TECHNIQUE: Axial imaging performed from the skull apex through the skull base without the use of cont rast. Sagittal and coronal reformatted images. All CT scans at this location are performed using CT dose reduction for ALARA by means of automated exposure control. COMPARISON: None available. FINDINGS: CEREBRAL PARENCHYMA: No significant abnormality. No acute territorial infarct. HEMORRHAGE: None. EXTRA-AXIAL SPACES: Normal in size and morphology for the patient's age. VENTRICULAR SYSTEM: Normal in size and morphology for the patient's age. MIDLINE SHIFT OR HERNIATION: None. CEREBELLUM / BRAINSTEM: No significant abnormality. CALVARIUM: No significant abnormality. ORBITS: Normal as visualized. PARANASAL SINUSES / MASTOID AIR CELLS: There is moderate to severe mucosal thickening throughout the ethmoid sinuses. Small fluid level is identified in the visualized superior right maxillary sinus. Th e mastoid air cells and middle ear contents are unremarkable. SOFT TISSUES of HEAD: No significant abnormality. ADDITIONAL FINDINGS: None. IMPRESSION: Normal CT brain. Mild to moderate sinus disease as described, likely chronic. Correlate for acute symptoms. Signer Name: Raul Lemon Jr, MD Signed: 12/29/2020 8:00 AM Workstation Name: [id number]
[2020-12-29 08:24] LABS: Creatine Kinase MB 2.2 ng/mL (0.0-4.0)
[2020-12-29 08:26] LABS: Blood Urea Nitrogen 20 mg/dL (9-20); Calcium 9.4 mg/dL (8.4-10.2); Hemolysis Index 16
[2020-12-29 08:52] LABS: BUN/Creatinine Ratio 29
[2020-12-29 10:11] VITALS: BP 123/69
--- NOTE | 2020-12-30 17:08 | Electrocardiograph Report ---
[facility] Test Date: 2020-12-29 Test Time: 09:58:38 Pat Name: TUNDE CRISOSTOMO Department: Room: Gender: M [employer]: TV : 1960 Requested By: ZINA PAGAN Order Number: [id number] Reading MD: Prabhakar Nichols Measurements Intervals [place] Rate: 55 P: 64 [place]: 157 QRS: -1 QRSD: 92 T: 57 QT: 383 QTc: 367 Interpretive Statements Sinus rhythm No previous ECG available for comparison Electronically Signed On 12-30-2020 17:08:06 EDT by Prabhakar Nichols
== END 2020-12-29 10:18 | disposition home or self-care (01) ==
LOC: ED 21:06
DX: J32.9 Chronic sinusitis, unspecified (principal); R42 Dizziness and giddiness; I10 Essential (primary) hypertension; E11.9 Type 2 diabetes mellitus without complications; J45.909 Unspecified asthma, uncomplicated; Z79.899 Other long term (current) drug therapy
CPT/HCPCS: 36415; 70450; 80048; 82550; 82553; 84484; 85025; 93005; 94640; 94644